=== PATIENT | male | born 1945 ===

== ENCOUNTER 2016-09-30 08:46 | Day surgery (SDC) | payer SELFPAY ==
[2016-01-22 15:00] VITALS: BMI 25.4
[2016-09-30] MEDS ORDERED: Lactated Ringer's 500 ML IV ONE (09:24)
[2016-09-30] MEDS ORDERED: Propofol 10 mg/ml Inj (20 ML) ONE (12:10)
[2016-10-01 16:00] VITALS: BP 120/56; PULSE 53; RESP 20; TEMP 97; O2SAT 99
== END 2016-09-30 13:10 | disposition home or self-care (01) ==
LOC: H.ENDO 08:46
PROVIDERS: ATTEND Internal Medicine Gastroenterology
DX: K57.90 Diverticulosis of intestine, part unspecified, without perforation or abscess without bleeding (principal); K64.8 Other hemorrhoids

== ENCOUNTER 2017-02-25 08:48 | Observation (INO) | payer OTHER, SELFPAY ==
[2017-02-25 08:48] VITALS: BMI 25.4
[2017-02-25] MEDS ORDERED: Nitroglycerin 2% 15 INCH/30 GM TUBE TOP STA (09:11)
[2017-02-25] MEDS ORDERED: Nitroglycerin 2% Ointment Foilpak UD TOP ONE (09:17)
--- NOTE | 2017-02-25 09:24 | ED PDOC ---
HPI: Chest Pain Time Seen by Provider: 02/25/17 09:10 Chief Complaint (Nursing): Chest Pain Chief Complaint (Provider): chest pain History Per: Patient History/Exam Limitations: no limitations Onset/Duration Of Symptoms: Days (x 1) Additional Complaint(s): Kemar Jarquin is a 71 year old male, who denies any previous medical history , who presents to the eD with complaints of left sided chest pain associated with palpitations which began last night. Patient denies any radiation of the pain, shortness of breath, nausea, vomiting or diaphoresis. PMD: none provided Past Medical History Reviewed: Historical Data, Nursing Documentation, Vital Signs Vital Signs: Last Vital Signs Temp 97.8 F 02/25/17 09:08 Pulse 99 H 02/25/17 09:08 Resp 20 02/25/17 09:08 BP 128/67 02/25/17 09:08 Pulse Ox 99 02/25/17 09:28 - Medical History PMH: Gastritis - Family History Family History: States: Unknown Family Hx - Home Medications Home Medications: Ambulatory Orders Medication Instructions Recorded No Known Home Med 09/30/16 - Allergies Allergies/Adverse Reactions: Allergies Allergy/AdvReac Type Severity Reaction Status Date / Time No Known Allergies Allergy Verified 02/25/17 09:08 Review of Systems ROS Statement: Except As Marked, All Systems Reviewed And Found Negative Cardiovascular: Positive for: Chest Pain, Palpitations Respiratory: Negative for: Shortness of Breath Gastrointestinal: Negative for: Nausea, Vomiting Physical Exam - Reviewed Nursing Documentation Reviewed: Yes Vital Signs Reviewed: Yes - Physical Exam Appears: Positive for: Well, Non-toxic, No Acute Distress Head Exam: Positive for: ATRAUMATIC, NORMAL INSPECTION, NORMOCEPHALIC Skin: Positive for: Normal Color, Warm, Dry Eye Exam: Positive for: EOMI, Normal appearance, PERRL ENT: Positive for: Normal ENT Inspection Neck: Positive for: Normal, Painless ROM Cardiovascular/Chest: Positive for: Regular Rate, Rhythm (with periods of irregularity ) Respiratory: Positive for: CNT, Normal Breath Sounds Gastrointestinal/Abdominal: Positive for: Normal Exam, Bowel Sounds, Soft. Negative for: Tenderness Back: Positive for: Normal Inspection Extremity: Positive for: Normal ROM Neurologic/Psych: Positive for: Alert, Oriented. Negative for: Motor/Sensory Deficits - Laboratory Results Result Diagrams: 02/25/17 09:15 - ECG O2 Sat by Pulse Oximetry: 99 (RA) Pulse Ox Interpretation: Normal Medical Decision Making Medical Decision Making: Initial Plan: * EKG * Labs * Troponin I * CXR * aspirin 350 mg PO * nitroglycerin 0.4 mg * ED observation * reevaluation Scribe Attestation: Documented by Doreen Rosas, acting as a scribe for Rodney Marques MD. Provider Scribe Attestation: All medical record entries made by the Scribe were at my direction and personally dictated by me. I have reviewed the chart and agree that the record accurately reflects my personal performance of the history, physical exam, medical decision making, and the department course for this patient. I have also personally directed, reviewed, and agree with the discharge instructions and disposition. ED OBSERVATION Date of observation admission: 02/25/17 Time of observation admission: 09:11 - Observation admission statement Patient is being placed in observation because:: evaluation of chest pain and work up - Goals of Observation Goals of observation are:: obtain work up results and alleviation of symptoms Disposition - Clinical Impression Clinical Impression: Chest pain - Patient ED Disposition Is Patient to be Admitted: Yes - Disposition Disposition Time: 09:31 Condition: FAIR Forms: [employer] (Lithuanian) - Pt Status Changed To: Hospital Disposition Of: Observation - POA Present On Arrival: None
[2017-02-25 09:26] LABS: BASO % 0.4 % (0.0-2.0); EOS # 0.1 K/uL (0.0-0.7); EOS % 2.2 % (0.0-4.0); HEMATOCRIT 40.4 % (35.0-51.0); LYMPH # 1.7 K/uL (1.0-4.3); LYMPH % 31.9 % (20.0-40.0); MEAN CELL VOLUME 91.2 fl (80.0-94.0); MEAN CORPUSCULAR HEMOGLOBIN 30.8 pg (27.0-31.0); MEAN CORPUSCULAR HGB CONC 33.8 g/dL (33.0-37.0); MEAN PLATELET VOLUME 9.7 fl (7.2-11.7); MONO # 0.4 K/uL (0.0-0.8); MONO % 8.3 % (0.0-10.0); NEUT % 57.2 % (50.0-75.0); NRBC % 0.1 % (0.0-0.0); RED CELL DISTRIBUTION WIDTH 13.4 % (11.5-14.5); WHITE BLOOD COUNT 5.3 K/uL (4.8-10.8)
[2017-02-25 10:12] LABS: BLOOD UREA NITROGEN 20 mg/dl (9-20); GLUCOSE,RANDOM 92 mg/dL (75-110)
[2017-02-25 10:13] LABS: ALB/GLOB RATIO 1.2 (1.0-2.1); CALCIUM 9.1 mg/dL (8.4-10.2); CARBON DIOXIDE 28 mmol/L (22-30); CHLORIDE 103 mmol/L (98-107); GFR AFRICAN-AMERICAN > 60; POTASSIUM 4.5 MMOL/L (3.6-5.0); SODIUM 138 mmol/l (132-148); TOTAL PROTEIN 7.5 G/DL (6.3-8.2)
[2017-02-25 10:14] LABS: ALKALINE PHOSPHATASE 57 U/L (38-126); ALT/SGPT 43 U/L (21-72); AST/SGOT 42 U/L (17-59); BILIRUBIN,TOTAL 0.4 mg/dl (0.2-1.3)
--- NOTE | 2017-02-25 11:48 | CP.PCM.HP ---
<Meera Eubanks - Last Filed: 02/25/17 17:06> History of Present Illness - History of Present Illness History of Present Illness: 71 yo male with PMH of Gastritis who cames c/o left side chest pain last night , gradual, no radiated, unable to characterize " only pain", he was lying on bed and pain disappear when he sat up during less than 1 min, no aggravating factors, associated palpitations. He reports palpitations 3-4 days ago w/o chest pain in that occasion. No recent fever, nausea or vomiting. Denies sob, diaphoresis, dizziness, no back pain, no arm pain or weakness, numbness, tingling. No history of recent injury or trauma. PMD: Dr Marion PMH: Gastritis. PSH: Prostectomy(20 years ago). Pterygium FH: Mother from uterine cancer. Father healthy () Meds: multivitamins Allergies: NKDA. SH: denies tobacco,alcohol and drugs. Lives with 2 nephews in a 3 floor house, he is using the 3rd floor. ED course. VS: temp-97.8F pulse-99 rr-20 BP-128/67 O2 sat-99 room air EKG: normal sinus rhythm, unifocal PVCs. cbc wnl, cmp wnl, troponin x1 normal. CXR normal, no acute changes. ASA 350 mg po nitroglycerin patch 0.4mg Present on Admission - Present on Admission Any Indicators Present on Admission: No History of DVT/PE: No History of Uncontrolled Diabetes: No Urinary Catheter: No Decubitus Ulcer Present: No Review of Systems - Constitutional Constitutional: As Per HPI. absent: Anorexia, Chills, Fatigue, Fever - EENT Eyes: As Per HPI. absent: Blurred Vision, Change in Vision Nose/Mouth/Throat: As Per HPI. absent: Nasal Congestion, Sinus Pain, Mouth Pain - Cardiovascular Cardiovascular: As Per HPI. absent: Chest Pain, Diaphoresis, Pain Radiating to Arm/Neck/Jaw - Respiratory Respiratory: As Per HPI. absent: Cough, Dyspnea, Wheezing - Gastrointestinal Gastrointestinal: As Per HPI. absent: Abdominal Pain, Change in Bowel Habits, Dysphagia, Heartburn - Genitourinary Genitourinary: As Per HPI. absent: Change in Urinary Stream, Dysuria - Musculoskeletal Musculoskeletal: As Per HPI. absent: Abnormal Gait, Back Pain, Joint Swelling, Muscle Weakness - Integumentary Integumentary: As Per HPI - Neurological Neurological: As Per HPI. absent: Abnormal Hearing, Abnormal Speech, Dizziness , Numbness, Headaches, Syncope - Psychiatric Psychiatric: As Per HPI - Endocrine Endocrine: As Per HPI - Hematologic/Lymphatic Hematologic: As Per HPI Past Patient History - Infectious Disease Hx of Infectious Diseases: None - Past Medical History & Family History Past Medical History?: No - Past Social History Smoking Status: Never Smoked - CARDIAC Hx Cardiac Disorders: No Hx Angina: No Hx Atrial Fibrillation: No Hx Circulatory Problems: No Hx Congestive Heart Failure: No Hx Heart Attack: No Hx Heart Murmur: No Hx Hypercholesterolemia: No Hx Hypertension: No Hx Peripheral Edema: No Hx Peripheral Vascular Disease: No - PULMONARY Hx Respiratory Disorders: No Hx Asthma: No Hx Bronchitis: No Hx Chronic Obstructive Pulmonary Disease (COPD): No Hx Emphysema: No Hx Lung Cancer: No Hx Pneumonia: No Hx Pulmonary Edema: No Hx Pulmonary Embolism: No Hx Respiratory Aspiration: No Hx Respiratory Tract Infection: No Hx Tuberculosis: No - MUSCULOSKELETAL/RHEUMATOLOGICAL Hx Back Pain: Yes - GASTROINTESTINAL Hx Gastritis: Yes - GENITOURINARY/GYNECOLOGICAL Hx Prostate Problems: Yes - PSYCHIATRIC Hx Emotional Abuse: No Hx Physical Abuse: No Hx Substance Use: No - SURGICAL HISTORY Hx Surgeries: Yes Other/Comment: OPEN PROSTATECTOMY - ANESTHESIA Hx Anesthesia: Yes Hx Anesthesia Reactions: No Hx Malignant Hyperthermia: No Meds Allergies/Adverse Reactions: Allergies Allergy/AdvReac Type Severity Reaction Status Date / Time No Known Allergies Allergy Verified 02/25/17 09:08 Physical Exam - Constitutional Appears: Well, Non-toxic, No Acute Distress - Head Exam Head Exam: ATRAUMATIC, NORMOCEPHALIC - Eye Exam Eye Exam: EOMI, Normal appearance, PERRL. absent: Nystagmus - Neck Exam Neck exam: Positive for: Full Rom, Normal Inspection. Negative for: Lymphadenopathy, Thyromegaly - Respiratory Exam Respiratory Exam: Clear to Auscultation Bilateral, NORMAL BREATHING PATTERN. absent: Rales, Rhonchi, Wheezes - Cardiovascular Exam Cardiovascular Exam: REGULAR RHYTHM, +S1, +S2. absent: Systolic Murmur - GI/Abdominal Exam GI & Abdominal Exam: Normal Bowel Sounds, Soft. absent: Mass, Tenderness - Extremities Exam Extremities exam: Positive for: full ROM, normal inspection. Negative for: calf tenderness, joint swelling, pedal edema - Back Exam Back exam: FULL ROM, NORMAL INSPECTION. absent: CVA tenderness (L), CVA tenderness (R), vertebral tenderness - Neurological Exam Neurological exam: Alert, CN II-XII Intact, Oriented x3, Reflexes Normal - Psychiatric Exam Psychiatric exam: Normal Mood - Skin Skin Exam: Dry, Normal Color, Warm Results - Vital Signs Recent Vital Signs: Last Vital Signs Temp 97.8 F 02/25/17 09:08 Pulse 70 02/25/17 09:10 Resp 20 02/25/17 09:08 BP 128/67 02/25/17 09:08 Pulse Ox 99 02/25/17 09:31 - Labs Result Diagrams: 02/25/17 09:15 02/25/17 09:15 Labs: Laboratory Results - last 24 hr 02/25/17 02/25/17 09:15 09:15 WBC 5.3 RBC 4.43 Hgb 13.6 Hct 40.4 MCV 91.2 MCH 30.8 MCHC 33.8 RDW 13.4 Plt Count 240 MPV 9.7 Neut % (Auto) 57.2 Lymph % (Auto) 31.9 [place] % (Auto) 8.3 Eos % (Auto) 2.2 Baso % (Auto) 0.4 Neut # 3.0 Lymph # 1.7 [place] # 0.4 Eos # 0.1 Baso # 0.0 Sodium 138 Potassium 4.5 Chloride 103 Carbon Dioxide 28 Anion Gap 12 BUN 20 Creatinine 0.8 Est GFR ( Amer) > 60 Est GFR (Non-Af Amer) > 60 Random Glucose 92 Calcium 9.1 Total Bilirubin 0.4 AST 42 ALT 43 Alkaline Phosphatase 57 Troponin I < 0.0120 Total Protein 7.5 Albumin 4.1 Globulin 3.4 Albumin/Globulin Ratio 1.2 Assessment & Plan - Assessment and Plan (Free Text) Assessment: 71 yo M patient with PMH of Gastritis that is admitted for chest pain and palpitations. 1- Chest pain/ palpitations -r/o acs with serial troponin -chest pain and palpitations short duration, better when pt sit up. -EKG show diffuse ST elevation, unifocal PVCs -Admit to telemetry for continuos cardiac monitoring -Echo ordered for tomorrow r/o valvular heart disease -TSH t/o thyrotoxicosis 2-DVT prophylaxis SCDs - Date & Time Date: 02/25/17 Time: 11:00 <Itzel Ramey - Last Filed: 02/26/17 07:46> Physical Exam - Skin Additional comments: ADDENDUM ATTENDING NOTE PATIENT SEEN IN ED WITH RESIDENTS. I PERSONALLY EXAMINED PATIENT AND REVIEWED, EKG,CXR AND LABS. I AGREE WITH OBS ADMISSION FOR FURTHER EVALUATION AND TREATMENT. Results - Vital Signs Recent Vital Signs: Last Vital Signs Temp 98.4 F 02/26/17 04:41 Pulse 56 L 02/26/17 04:41 Resp 18 02/26/17 04:41 BP 109/63 02/26/17 04:41 Pulse Ox 98 02/26/17 04:41 - Labs Result Diagrams: 02/25/17 09:15 02/25/17 09:15 Labs: Laboratory Results - last 24 hr 02/25/17 02/25/17 02/25/17 09:15 09:15 16:57 WBC 5.3 RBC 4.43 Hgb 13.6 Hct 40.4 MCV 91.2 MCH 30.8 MCHC 33.8 RDW 13.4 Plt Count 240 MPV 9.7 Neut % (Auto) 57.2 Lymph % (Auto) 31.9 [place] % (Auto) 8.3 Eos % (Auto) 2.2 Baso % (Auto) 0.4 Neut # 3.0 Lymph # 1.7 [place] # 0.4 Eos # 0.1 Baso # 0.0 Sodium 138 Potassium 4.5 Chloride 103 Carbon Dioxide 28 Anion Gap 12 BUN 20 Creatinine 0.8 Est GFR ( Amer) > 60 Est GFR (Non-Af Amer) > 60 Random Glucose 92 Calcium 9.1 Total Bilirubin 0.4 AST 42 ALT 43 Alkaline Phosphatase 57 Troponin I < 0.0120 < 0.0120 Total Protein 7.5 Albumin 4.1 Globulin 3.4 Albumin/Globulin Ratio 1.2 TSH 3rd Generation 02/26/17 02/26/17 00:28 05:00 WBC RBC Hgb Hct MCV MCH MCHC RDW Plt Count MPV Neut % (Auto) Lymph % (Auto) [place] % (Auto) Eos % (Auto) Baso % (Auto) Neut # Lymph # [place] # Eos # Baso # Sodium Potassium Chloride Carbon Dioxide Anion Gap BUN Creatinine Est GFR ( Amer) Est GFR (Non-Af Amer) Random Glucose Calcium Total Bilirubin AST ALT Alkaline Phosphatase Troponin I < 0.0120 Total Protein Albumin Globulin Albumin/Globulin Ratio TSH 3rd Generation 1.75
--- NOTE | 2017-02-25 15:39 | RAD ---
HISTORY: cough COMPARISON: Comparison chest 03/18/2015. FINDINGS: LUNGS: No active pulmonary disease. PLEURA: No significant pleural effusion identified, no pneumothorax apparent. CARDIOVASCULAR: Other on left Heart appears borderline/mildly enlarged OSSEOUS STRUCTURES: No significant abnormalities. VISUALIZED UPPER ABDOMEN: Normal. OTHER FINDINGS: None. IMPRESSION: No active disease.
--- NOTE | 2017-02-25 17:02 | CARD ---
APPROVED REPORT EXAM: Two-dimensional and M-mode echocardiogram with Doppler and color Doppler. Other Information Quality : GoodRhythm : PVC's INDICATION Chest Pain 2D DIMENSIONS IVSd1.08 (0.7-1.1cm)LVDd4.45 (3.9-5.9cm) LVOT Diameter2.35 (1.8-2.4cm)PWd0.79 (0.7-1.1cm) IVSs1.06 (0.8-1.2cm)LVDs3.38 (2.5-4.0cm) FS (%) 24.1 %PWs1.29 (0.8-1.2cm) M-Mode DIMENSIONS Left Atrium (MM)4.44 (2.5-4.0cm)IVSd0.88 (0.7-1.1cm) Aortic Root3.62 (2.2-3.7cm)LVDd5.41 (4.0-5.6cm) Aortic Cusp Exc.2.21 (1.5-2.0cm)PWd0.97 (0.7-1.1cm) IVSs1.29 cmFS (%) 36 % LVDs3.47 (2.0-3.8cm)PWs1.06 cm Mitral Valve MV E Nuhlpqlh89.8cm/sMV DECEL [id number] A Tnouchil85.1cm/s MV GJO77bdM/A ratio1.2MVA (PHT)2.93cm2 TDI Lateral E' Peak V10.92cm/sMedial E' Peak V8.64cm/sE/Lateral E'6.9 E/Medial E'8.8 Pulmonary Valve PV Peak Xbrnbhar276.5cm/s Tricuspid Valve TR Peak Jmyckngy095xt/sRAP BVHYWSER18gtAvLG Peak Gr.24mmHg UNXH79tuWa LEFT VENTRICLE The left ventricle is normal in size. There is normal left ventricular wall thickness. The left ventricular function is normal. The left ventricular ejection fraction is - 65%. There is normal LV segmental wall motion. The left ventricular diastolic function is normal. No left ventricle thrombus noted on this study. There is no ventricular septal defect visualized. There is no left ventricular aneurysm. There is no mass noted in the left ventricle. RIGHT VENTRICLE The right ventricle is normal size. There is normal right ventricular wall thickness. The right ventricular systolic function is normal. ATRIA The left atrium is mildly dilated. There is no thrombus suspected in the left atrium. The right atrium size is normal. The interatrial septum is intact with no evidence for an atrial septal defect. AORTIC VALVE The aortic valve is normal in structure and function. No aortic regurgitation is present. There is no aortic valvular stenosis. MITRAL VALVE The mitral valve is normal in structure and function. There is no evidence of mitral valve prolapse. There is no mitral valve stenosis. Mitral regurgitation is trace. TRICUSPID VALVE The tricuspid valve is normal in structure and function. There is mild to moderate tricuspid regurgitation. Right ventricular systolic pressure is estimated at 33 mmHg. There is no tricuspid valve prolapse or vegetation. There is no tricuspid valve stenosis. PULMONIC VALVE The pulmonic valve is not well visualized. There is no pulmonic valvular regurgitation. GREAT VESSELS The aortic root is normal in size. The IVC is normal in size and collapses >50% with inspiration. PERICARDIAL EFFUSION The pericardium appears normal. There is no pleural effusion. <Conclusion> The left ventricle is normal in size and wall thickness. The left ventricular function is normal. The left ventricular ejection fraction is - 65%. The left atrium is mildly dilated. The mitral, aortic and tricuspid valves are normal. There is trace mitral regurgitation and mild to moderate tricuspid regurgitation.
[2017-02-26 08:28] VITALS: RESP 20
[2017-02-26 12:49] VITALS: BP 114/68; PULSE 86; TEMP 98.5; O2SAT 97
--- NOTE | 2017-02-26 12:52 | CP.PCM.DIS ---
<Meera Eubanks - Last Filed: 02/26/17 15:21> Provider - Provider Date of Admission: 02/25/17 09:11 Attending physician: Bonny Valencia MD Time Spent in preparation of Discharge (in minutes): 30 Hospital Course - Lab Results Lab Results: Most Recent Lab Values WBC 5.3 K/uL (4.8-10.8) 02/25/17 09:15 RBC 4.43 Mil/uL (4.40-5.90) 02/25/17 09:15 Hgb 13.6 g/dL (12.0-18.0) 02/25/17 09:15 Hct 40.4 % (35.0-51.0) 02/25/17 09:15 MCV 91.2 fl (80.0-94.0) 02/25/17 09:15 MCH 30.8 pg (27.0-31.0) 02/25/17 09:15 MCHC 33.8 g/dL (33.0-37.0) 02/25/17 09:15 RDW 13.4 % (11.5-14.5) 02/25/17 09:15 Plt Count 240 K/uL (130-400) 02/25/17 09:15 MPV 9.7 fl (7.2-11.7) 02/25/17 09:15 Neut % (Auto) 57.2 % (50.0-75.0) 02/25/17 09:15 Lymph % (Auto) 31.9 % (20.0-40.0) 02/25/17 09:15 [place] % (Auto) 8.3 % (0.0-10.0) 02/25/17 09:15 Eos % (Auto) 2.2 % (0.0-4.0) 02/25/17 09:15 Baso % (Auto) 0.4 % (0.0-2.0) 02/25/17 09:15 Neut # 3.0 K/uL (1.8-7.0) 02/25/17 09:15 Lymph # 1.7 K/uL (1.0-4.3) 02/25/17 09:15 [place] # 0.4 K/uL (0.0-0.8) 02/25/17 09:15 Eos # 0.1 K/uL (0.0-0.7) 02/25/17 09:15 Baso # 0.0 K/uL (0.0-0.2) 02/25/17 09:15 Sodium 138 mmol/l (132-148) 02/25/17 09:15 Potassium 4.5 MMOL/L (3.6-5.0) 02/25/17 09:15 Chloride 103 mmol/L (98-107) 02/25/17 09:15 Carbon Dioxide 28 mmol/L (22-30) 02/25/17 09:15 Anion Gap 12 (10-20) 02/25/17 09:15 BUN 20 mg/dl (9-20) 02/25/17 09:15 Creatinine 0.8 mg/dL (0.8-1.5) 02/25/17 09:15 Est GFR ( Amer) > 60 02/25/17 09:15 Est GFR (Non-Af Amer) > 60 02/25/17 09:15 Random Glucose 92 mg/dL (75-110) 02/25/17 09:15 Calcium 9.1 mg/dL (8.4-10.2) 02/25/17 09:15 Total Bilirubin 0.4 mg/dl (0.2-1.3) 02/25/17 09:15 AST 42 U/L (17-59) 02/25/17 09:15 ALT 43 U/L (21-72) 02/25/17 09:15 Alkaline Phosphatase 57 U/L (38-126) 02/25/17 09:15 Troponin I < 0.0120 ng/mL (0.00-0.120) 02/26/17 00:28 Total Protein 7.5 G/DL (6.3-8.2) 02/25/17 09:15 Albumin 4.1 g/dL (3.5-5.0) 02/25/17 09:15 Globulin 3.4 gm/dL (2.2-3.9) 02/25/17 09:15 Albumin/Globulin Ratio 1.2 (1.0-2.1) 02/25/17 09:15 TSH 3rd Generation 1.75 mIU/ML (0.46-4.68) 02/26/17 05:00 - Hospital Course Hospital Course: 71 yo male with PMH of Gastritis admitted with left side chest pain and palpitations x 1 day. VS normal. EKG: normal sinus rhythm, unifocal PVCs. cbc wnl, cmp wnl, CXR normal, no acute changes. r/o ACS troponin x3 normal. r/o thyrotoxicosis TSH normal. r/o pericarditis Echo normal. ASA 350 mg po nitroglycerin patch 0.4mg Patient asymptomatic at discharge time. F/U with PMD on 03/20/17 at 1:00 pm. Discharge Exam - Head Exam Head Exam: ATRAUMATIC, NORMOCEPHALIC - Eye Exam Eye Exam: EOMI, Normal appearance, PERRL - Neck Exam Neck exam: Full Rom - Respiratory Exam Respiratory Exam: Clear to PA & Lateral, NORMAL BREATHING PATTERN. absent: Rales, Rhonchi, Wheezes - Cardiovascular Exam Cardiovascular Exam: REGULAR RHYTHM, +S1, +S2. absent: Gallop, Systolic Murmur - GI/Abdominal Exam GI & Abdominal Exam: Normal Bowel Sounds, Soft. absent: Organomegaly, Tenderness - Extremities Exam Extremities exam: full ROM - Back Exam Back exam: NORMAL INSPECTION. absent: vertebral tenderness - Neurological Exam Neurological exam: Alert, CN II-XII Intact, Normal Gait, Oriented x3, Reflexes Normal - Psychiatric Exam Psychiatric exam: Normal Mood - Skin Skin Exam: Dry, Normal Color, Warm Discharge Plan - Follow Up Plan Condition: IMPROVED Disposition: HOME/ ROUTINE Patient education suggested?: Yes Instructions: Chest Pain (DC) Additional Instructions: F/U with PMD on 03/20/2017 at 1:[address] [address] <Itzel Ramey - Last Filed: 02/27/17 08:25> Provider - Provider Date of Admission: 02/25/17 09:11 Attending physician: Bonny Valencia MD Hospital Course - Lab Results Lab Results: Most Recent Lab Values WBC 5.3 K/uL (4.8-10.8) 02/25/17 09:15 RBC 4.43 Mil/uL (4.40-5.90) 02/25/17 09:15 Hgb 13.6 g/dL (12.0-18.0) 02/25/17 09:15 Hct 40.4 % (35.0-51.0) 02/25/17 09:15 MCV 91.2 fl (80.0-94.0) 02/25/17 09:15 MCH 30.8 pg (27.0-31.0) 02/25/17 09:15 MCHC 33.8 g/dL (33.0-37.0) 02/25/17 09:15 RDW 13.4 % (11.5-14.5) 02/25/17 09:15 Plt Count 240 K/uL (130-400) 02/25/17 09:15 MPV 9.7 fl (7.2-11.7) 02/25/17 09:15 Neut % (Auto) 57.2 % (50.0-75.0) 02/25/17 09:15 Lymph % (Auto) 31.9 % (20.0-40.0) 02/25/17 09:15 [place] % (Auto) 8.3 % (0.0-10.0) 02/25/17 09:15 Eos % (Auto) 2.2 % (0.0-4.0) 02/25/17 09:15 Baso % (Auto) 0.4 % (0.0-2.0) 02/25/17 09:15 Neut # 3.0 K/uL (1.8-7.0) 02/25/17 09:15 Lymph # 1.7 K/uL (1.0-4.3) 02/25/17 09:15 [place] # 0.4 K/uL (0.0-0.8) 02/25/17 09:15 Eos # 0.1 K/uL (0.0-0.7) 02/25/17 09:15 Baso # 0.0 K/uL (0.0-0.2) 02/25/17 09:15 Sodium 138 mmol/l (132-148) 02/25/17 09:15 Potassium 4.5 MMOL/L (3.6-5.0) 02/25/17 09:15 Chloride 103 mmol/L (98-107) 02/25/17 09:15 Carbon Dioxide 28 mmol/L (22-30) 02/25/17 09:15 Anion Gap 12 (10-20) 02/25/17 09:15 BUN 20 mg/dl (9-20) 02/25/17 09:15 Creatinine 0.8 mg/dL (0.8-1.5) 02/25/17 09:15 Est GFR ( Amer) > 60 02/25/17 09:15 Est GFR (Non-Af Amer) > 60 02/25/17 09:15 Random Glucose 92 mg/dL (75-110) 02/25/17 09:15 Calcium 9.1 mg/dL (8.4-10.2) 02/25/17 09:15 Total Bilirubin 0.4 mg/dl (0.2-1.3) 02/25/17 09:15 AST 42 U/L (17-59) 02/25/17 09:15 ALT 43 U/L (21-72) 02/25/17 09:15 Alkaline Phosphatase 57 U/L (38-126) 02/25/17 09:15 Troponin I < 0.0120 ng/mL (0.00-0.120) 02/26/17 00:28 Total Protein 7.5 G/DL (6.3-8.2) 02/25/17 09:15 Albumin 4.1 g/dL (3.5-5.0) 02/25/17 09:15 Globulin 3.4 gm/dL (2.2-3.9) 02/25/17 09:15 Albumin/Globulin Ratio 1.2 (1.0-2.1) 02/25/17 09:15 TSH 3rd Generation 1.75 mIU/ML (0.46-4.68) 02/26/17 05:00 Discharge Exam - Skin Additional comments: ADDENDUM ATTENDING NOTE PATIENT SEEN BY ME AND EXAMINED. PATIENT WITHOUT PAIN SINCE ADMISSION. WORK UP NEGATIVE FOR AMI. CASE DISCUSSED WITH RESIDENT. AGREE WITH FINDINGS AND PLAN TO FOLLOW OUTPATIENT.
--- NOTE | 2017-02-27 09:56 | CARD ---
APPROVED REPORT EKG Measurement Heart [id number] VT 160P30 [id number] <Conclusion> Sinus bradycardia with occasional premature ventricular complexes Otherwise normal ECG
== END 2017-02-26 14:56 | disposition home or self-care (01) ==
LOC: H.ER 08:48 → H.ERHOLD 09:11 → H.TEL 12:04
PROVIDERS: ADMIT Family Medicine Geriatric Medicine; ATTEND Family Medicine Geriatric Medicine
DX: R07.9 Chest pain, unspecified (principal); R00.2 Palpitations; K29.70 Gastritis, unspecified, without bleeding
CPT/HCPCS: 36415; 71010; 80053; 84443; 84484; 85025; 93005; 93306; 99285; G0378

== ENCOUNTER 2017-03-16 09:19 | Emergency (ER) | payer SELFPAY ==
[2017-03-16 09:24] VITALS: BP 139/66; PULSE 57; RESP 20; TEMP 97.6; O2SAT 100
[2017-03-16 09:25] VITALS: BMI 24.7
--- NOTE | 2017-03-16 09:56 | ED PDOC ---
Lower Extremity Pain/Injury Time Seen by Provider: 03/16/17 09:28 Chief Complaint (Nursing): Lower Extremity Problem/Injury Chief Complaint (Provider): right hip pain History Per: Patient Onset/Duration Of Symptoms: Days (3) Current Symptoms Are (Timing): Still Present Severity: Moderate Additional History Per: Prior Records (chest pain admission last month) Additional Complaint(s): 70yo male states has right hip/ upper leg pain radiating to back and posterior leg since thursday. Denies falls or injury. Denies numbness, tingling or weakness. Denies urinary symptoms. Past Medical History Vital Signs: Last Vital Signs Temp 97.6 F 03/16/17 09:23 Pulse 57 L 03/16/17 09:23 Resp 20 03/16/17 09:23 BP 139/66 03/16/17 09:23 Pulse Ox 100 03/16/17 09:23 - Medical History PMH: Gastritis Denies: Asthma, Atrial Fibrillation, Bronchitis, CHF, COPD, Emphysema, HTN, Hypercholesterolemia, Peripheral Edema, Pneumonia, Pulmonary Embolism - Family History Family History: States: Unknown Family Hx - Home Medications Home Medications: Ambulatory Orders Medication Instructions Recorded Naproxen [Naprosyn] 500 mg PO BID PRN #14 tablet 03/16/17 - Allergies Allergies/Adverse Reactions: Allergies Allergy/AdvReac Type Severity Reaction Status Date / Time No Known Allergies Allergy Verified 02/25/17 09:08 Physical Exam - Reviewed Nursing Documentation Reviewed: Yes Vital Signs Reviewed: Yes - Physical Exam Appears: Positive for: Well, Non-toxic, No Acute Distress Head Exam: Positive for: ATRAUMATIC, NORMAL INSPECTION, NORMOCEPHALIC Skin: Positive for: Normal Color, Warm, DRY Eye Exam: Positive for: EOMI, Normal appearance, PERRL ENT: Positive for: Normal ENT Inspection Neck: Positive for: Normal, Painless ROM Cardiovascular/Chest: Positive for: Regular Rate, Rhythm Respiratory: Positive for: CNT, Normal Breath Sounds Gastrointestinal/Abdominal: Positive for: Normal Exam, Bowel Sounds, Soft Back: Positive for: Normal Inspection Extremity: Positive for: Other (+ mild tenderness R hip w pain w ROM, no deformity, is able to actively abduct and flex hip. Ambulated to room.). Negative for: Pedal Edema, Deformity Neurologic/Psych: Positive for: Alert, Oriented. Negative for: Motor/Sensory Deficits - ECG O2 Sat by Pulse Oximetry: 100 Pulse Ox Interpretation: Normal - Radiology X-Ray: Read By Radiologist X-Ray Interpretation: Other (neg fracture) Medical Decision Making Medical Decision Making: to obtain XRays and initiate analgesia. Improved in ED, DC to followup w PMD/. Disposition - Clinical Impression Clinical Impression: Hip pain - Patient ED Disposition Is Patient to be Admitted: No Counseled Patient/Family Regarding: Studies Performed, Diagnosis - Disposition Referrals: [facility] [Outside] Disposition: Routine/Home Disposition Time: 11:01 Condition: IMPROVED Additional Instructions: See clinic for referral to orthopedist for further treatment or testing. Take medication as directed for pain. Prescriptions: Naproxen [Naprosyn] 500 mg PO BID PRN #14 tablet PRN Reason: Pain, Moderate (4-7) Instructions: Arthralgia (ED), Hip Pain (ED) Forms: [facility] (Rwandan) Print Language: SAO TOMEAN
--- NOTE | 2017-03-16 10:49 | RAD ---
HISTORY: R hip/ back pain COMPARISON: No prior FINDINGS: BONES: Normal. No fracture. JOINTS: Normal. No osteoarthritis. SOFT TISSUE: Normal. OTHER FINDINGS: None . IMPRESSION: Normal Bone Xray.
--- NOTE | 2017-03-16 10:54 | RAD ---
PROCEDURE: Radiographs of the Lumbar Spine. HISTORY: R hip/ back pain COMPARISON: No prior. FINDINGS: BONES: Normal alignment. No listhesis. No fracture. DISC SPACES: Unremarkable. OTHER FINDINGS: Multilevel mild degenerative spondylosis.. IMPRESSION: No acute fracture.
== END 2017-03-16 11:28 | disposition home or self-care (01) ==
LOC: H.ER 09:19
DX: M25.551 Pain in right hip (principal)
CPT/HCPCS: 72114; 73502; 96372; 99282; J1885

== ENCOUNTER 2017-04-23 10:37 | Inpatient (IN) | payer MEDICAID, SELFPAY ==
[2017-04-23 10:37] VITALS: BMI 24.7
[2017-04-23 11:14] LABS: BASO % 0.5 % (0.0-2.0); EOS # 0.1 K/uL (0.0-0.7); EOS % 2.2 % (0.0-4.0); HEMATOCRIT 41.7 % (35.0-51.0); LYMPH # 1.7 K/uL (1.0-4.3); LYMPH % 25.8 % (20.0-40.0); MEAN CELL VOLUME 91.7 fl (80.0-94.0); MEAN CORPUSCULAR HEMOGLOBIN 31.4 pg (27.0-31.0); MEAN CORPUSCULAR HGB CONC 34.2 g/dL (33.0-37.0); MEAN PLATELET VOLUME 10.2 fl (7.2-11.7); MONO # 0.5 K/uL (0.0-0.8); MONO % 8.1 % (0.0-10.0); NEUT # 4.3 K/uL (1.8-7.0); NEUT % 63.4 % (50.0-75.0); WHITE BLOOD COUNT 6.7 K/uL (4.8-10.8)
[2017-04-23 11:24] LABS: ALB/GLOB RATIO 1.3 (1.0-2.1); ALKALINE PHOSPHATASE 61 U/L (38-126); ALT/SGPT 45 U/L (21-72); AST/SGOT 36 U/L (17-59); BILIRUBIN,TOTAL 0.5 mg/dl (0.2-1.3); BLOOD UREA NITROGEN 16 mg/dl (9-20); CARBON DIOXIDE 27 mmol/L (22-30); CHLORIDE 102 mmol/L (98-107); GFR AFRICAN-AMERICAN > 60; GLUCOSE,RANDOM 129 mg/dL (75-110); LIPASE 150 U/L (23-300); POTASSIUM 4.5 MMOL/L (3.6-5.0); SODIUM 139 mmol/l (132-148); TOTAL PROTEIN 7.9 G/DL (6.3-8.2)
--- NOTE | 2017-04-23 12:56 | US ---
HISTORY: upper abd pain COMPARISON: None. TECHNIQUE: Sonographic evaluation of the abdomen. FINDINGS: LIVER: Measures 13.1 cm. Normal echogenicity of the liver parenchyma. No mass. No intrahepatic bile duct dilatation. GALLBLADDER: Unremarkable. No gallstones. COMMON BILE DUCT: Measures 4 mm. No stones. No dilatation. PANCREAS: Unremarkable as visualized. No mass. No ductal dilatation. RIGHT KIDNEY: Measures 10.8cm. Normal echogenicity. No calculus, mass, or hydronephrosis. LEFT KIDNEY: Measures 11.2cm. Normal echogenicity. No calculus, mass, or hydronephrosis. SPLEEN: Normal in size and contour. No mass. AORTA: No aneurysmal dilatation. IVC: Unremarkable. OTHER FINDINGS: None. IMPRESSION: Unremarkable abdominal sonogram.
[2017-04-23] MEDS ORDERED: Iohexol 240 (50 ml) PO ONE (13:09)
[2017-04-23] MEDS ORDERED: Sodium Chloride 0.9% 1,000 ML IV STA (14:10)
[2017-04-23] MEDS ORDERED: Iohexol 240 (50 ml) ONE (14:12)
[2017-04-23 15:02] LABS: RBC URINE 3 /hpf (0-3); URINE BILIRUBIN NEGATIVE (NEGATIVE); URINE BLOOD NEGATIVE (NEGATIVE); URINE COLOR YELLOW (YELLOW); URINE GLUCOSE (UA) NEG (Normal); URINE KETONE NEGATIVE (NEGATIVE); URINE LEUKOCYTE ESTERASE NEG Leu/uL (Negative); URINE PROTEIN NEGATIVE (NEGATIVE); URINE UROBILINOGEN 0.2-1.0 mg/dL (0.2-1.0); WBC URINE < 1 /hpf (0-5)
[2017-04-23] MEDS ORDERED: Iohexol 300 100 ML IJ ONE (15:51)
[2017-04-23] MEDS ORDERED: Sodium Chloride 0.9% 50 ML IV ONE (15:51)
--- NOTE | 2017-04-23 16:50 | CT ---
PROCEDURE: CT Abdomen and Pelvis with contrast HISTORY: upper abd pain COMPARISON: 06/08/2015 TECHNIQUE: Contrast dose: 90 mL Omnipaque 300 Radiation dose: Total exam DLP = 367.86 mGy-cm. This CT exam was performed using one or more of the following dose reduction techniques: Automated exposure control, adjustment of the mA and/or kV according to patient size, and/or use of iterative reconstruction technique. FINDINGS: LOWER THORAX: Linear scar/atelectasis in both lower lobes. LIVER: Unremarkable. No gross lesion or ductal dilatation. GALLBLADDER AND BILE DUCTS: Unremarkable. PANCREAS: Unremarkable. No gross lesion or ductal dilatation. SPLEEN: Unremarkable. ADRENALS: Unremarkable. No mass. KIDNEYS AND URETERS: Unremarkable. No hydronephrosis. No solid mass. VASCULATURE: Unremarkable. No aortic aneurysm. BOWEL: No bowel obstruction. Mild mural thickening of the transverse colon. There is pericolonic inflammatory change about the transverse colon. Findings suggestive of colitis, either inflammatory or infectious. No other abnormal bowel loops are appreciated. APPENDIX: Normal appendix. PERITONEUM: Unremarkable. No free fluid. No free air. LYMPH NODES: Unremarkable. No enlarged lymph nodes. BLADDER: Poorly distended. No gross abnormality. REPRODUCTIVE: Normal prostate. BONES: No acute fracture. OTHER FINDINGS: None. IMPRESSION: Findings suggestive of acute colitis involving the transverse colon. Infectious versus inflammatory etiology. No bowel obstruction. No other significant abnormality identified.
--- NOTE | 2017-04-23 16:53 | ED PDOC ---
HPI: Abdomen Time Seen by Provider: 04/23/17 10:48 Chief Complaint (Nursing): Abdominal Pain Chief Complaint (Provider): abdominal pain History Per: Patient, Publications Manager History/Exam Limitations: no limitations Current Symptoms Are (Timing): Still Present Location Of Pain/Discomfort: RUQ, Epigastric Quality Of Discomfort: Sharp, Cramping, Burning Associated Symptoms: Nausea, Loss Of Appetite Exacerbating Factors: None Alleviating Factors: None Last Bowel Movement: Today Additional Complaint(s): 70yo male c/o upper abdominal pain, nausea ongoing intermittently for several months. Denies syncope, chest pain, SOB, melena or fever. Past Medical History Reviewed: Historical Data, Nursing Documentation Vital Signs: Last Vital Signs Temp 98.1 F 04/23/17 10:40 Pulse 77 04/23/17 10:52 Resp 18 04/23/17 10:40 BP 141/64 04/23/17 10:52 Pulse Ox 100 04/23/17 16:55 - Medical History PMH: Gastritis Denies: Asthma, Atrial Fibrillation, Bronchitis, CHF, COPD, Emphysema, HTN, Hypercholesterolemia, Peripheral Edema, Pneumonia, Pulmonary Embolism - Surgical History Surgical History: No Surg Hx - Family History Family History: States: Unknown Family Hx - Social History Current smoker - smoking cessation education provided: No Alcohol: None - Home Medications Home Medications: Ambulatory Orders Medication Instructions Recorded Naproxen [Naprosyn] 500 mg PO BID PRN #14 tablet 03/16/17 - Allergies Allergies/Adverse Reactions: Allergies Allergy/AdvReac Type Severity Reaction Status Date / Time No Known Allergies Allergy Verified 04/23/17 10:48 Review of Systems ROS Statement: Except As Marked, All Systems Reviewed And Found Negative Constitutional: Negative for: Fever, Chills Respiratory: Negative for: Cough, Shortness of Breath Gastrointestinal: Positive for: Nausea, Vomiting, Abdominal Pain Genitourinary Male: Negative for: Dysuria, Frequency Musculoskeletal: Negative for: Neck Pain, Back Pain Skin: Negative for: Rash Neurological: Negative for: Weakness, Numbness, Dizziness Physical Exam - Reviewed Nursing Documentation Reviewed: Yes Vital Signs Reviewed: Yes - Physical Exam Appears: Positive for: Well, Non-toxic, No Acute Distress Head Exam: Positive for: ATRAUMATIC, NORMAL INSPECTION, NORMOCEPHALIC Skin: Positive for: Normal Color, Warm, DRY Eye Exam: Positive for: EOMI, Normal appearance, PERRL ENT: Positive for: Normal ENT Inspection Neck: Positive for: Normal, Painless ROM Cardiovascular/Chest: Positive for: Regular Rate, Rhythm Respiratory: Positive for: CNT, Normal Breath Sounds Gastrointestinal/Abdominal: Positive for: Bowel Sounds, Soft, Tenderness ( mild upper abd tenderness). Negative for: Guarding, Rebound Back: Positive for: Normal Inspection Extremity: Positive for: Normal ROM Neurologic/Psych: Positive for: Alert, Oriented - Laboratory Results Result Diagrams: 04/23/17 11:05 04/23/17 11:05 - ECG ECG: Positive for: Interpreted By Me ECG Rhythm: Positive for: Sinus Rhythm, Nonspecific Changes Interpretation Of Abn EKG: bigeminy O2 Sat by Pulse Oximetry: 100 Pulse Ox Interpretation: Normal Medical Decision Making Medical Decision Making: workup for upper abd pain initiated labs reviewed US abd obtained, unremarkable Therefore CT ordered which reveals colitis transverse colon 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 This is because of the severity of symptoms shown, intensity of services needed, and/or the medical risk in this patient being treated as an outpatient. - POA Present On Arrival: None
[2017-04-23] MEDS ORDERED: Ciprofloxacin 400mg/200ml D5W 400 MG/200 ML BAG IVPB STA (16:59)
--- NOTE | 2017-04-23 17:38 | CP.PCM.HP ---
History of Present Illness - History of Present Illness History of Present Illness: 71 YO male with PMH of gastritis and H. pylori treatment (2014) presents to [facility] ED for abdominal pain. Per pt, this is a pain that he has had for years. Pain is located in the [place]-umbilical area (transverse across) with no radiation. He describes it as pressure type pain, that is persistent but worse when palpated. Pt rates the pain as a mild at rest and moderate when palpated. No associated symptoms, but pt states that the pain gets better after eating. Pt additionally endorses 10lb weight loss in the past 4 months. Denies chest pain, dyspnea, palpitation, n/v/d/c, no blood w/ stool, no changes in stool, chills, and fever. Last BM this AM. of note, pt was seen in clinic with similar concerns on 03/20/2017. He had extensive work-up with Dr. Younger regarding abdominal pain and weight loss and work up was neg. Last colonoscopy was 09/2016. In the ED: CT abdomne/pelvis done showing transverse colitis, unremarkable abdominal u/s, EKG appreciated with sinus rhythm and bigeminy cbc, cmp and ua wnl, vs stable and pt afebrile pt given IV abx, asa, pepsid and zofran. PMD: [facility] PMH: Gastritis, h. pylori infection (s/p treatment) Surghx: prostate removal 2001 FH: father prostate cancer, mother uterine cancer SocHx: lives at home with nephew and his , denies ETOH, smoking and illicit drug use Allergies: NKDA Meds: not on any home meds Present on Admission - Present on Admission Any Indicators Present on Admission: Yes Review of Systems - Constitutional Constitutional: absent: Chills, Fever, Headache - EENT Eyes: absent: Discharge, Pain - Cardiovascular Cardiovascular: absent: Chest Pain, Chest Pain at Rest, Lightheadedness, Palpitations - Respiratory Respiratory: absent: Cough, Dyspnea - Gastrointestinal Gastrointestinal: Abdominal Pain. absent: Bloating, Change in Bowel Habits, Change in Stool Character, Diarrhea, Loose Stools, Vomiting - Genitourinary Genitourinary: absent: Difficulty Urinating, Dysuria - Musculoskeletal Musculoskeletal: absent: Back Pain, Muscle Weakness, Numbness, Stiffness - Neurological Neurological: absent: Numbness, Headaches, Weakness - Psychiatric Psychiatric: absent: Anxiety, Confusion, Depression Past Patient History - Infectious Disease Hx of Infectious Diseases: None - Tetanus Immunizations Tetanus Immunization: Unknown - Past Medical History & Family History Past Medical History?: No - Past Social History Smoking Status: Never Smoked Alcohol: None Drugs: Denies Home Situation {Lives}: With Family (nephew and nephews ) - CARDIAC Hx Atrial Fibrillation: No Hx Congestive Heart Failure: No Hx Hypercholesterolemia: No Hx Hypertension: No Hx Peripheral Edema: No - PULMONARY Hx Asthma: No Hx Bronchitis: No Hx Chronic Obstructive Pulmonary Disease (COPD): No Hx Emphysema: No Hx Pneumonia: No Hx Pulmonary Embolism: No - NEUROLOGICAL Hx Neurological Disorder: No - ENDOCRINE/METABOLIC Hx Endocrine Disorders: No - HEMATOLOGICAL/ONCOLOGICAL Hx Blood Disorders: No Hx Blood Transfusions: No - MUSCULOSKELETAL/RHEUMATOLOGICAL Hx Back Pain: Yes - GASTROINTESTINAL Hx Gastritis: Yes - GENITOURINARY/GYNECOLOGICAL Hx Prostate Problems: Yes - PSYCHIATRIC Hx Emotional Abuse: No Hx Physical Abuse: No Hx Substance Use: No - SURGICAL HISTORY Hx Surgeries: Yes Other/Comment: OPEN PROSTATECTOMY - ANESTHESIA Hx Anesthesia: Yes Hx Anesthesia Reactions: No Hx Malignant Hyperthermia: No Meds Allergies/Adverse Reactions: Allergies Allergy/AdvReac Type Severity Reaction Status Date / Time No Known Allergies Allergy Verified 04/23/17 10:48 Physical Exam - Head Exam Head Exam: ATRAUMATIC, NORMAL INSPECTION, NORMOCEPHALIC - Eye Exam Eye Exam: EOMI, Normal appearance, PERRL - ENT Exam ENT Exam: Mucous Membranes Moist - Neck Exam Neck exam: Positive for: Full Rom, Normal Inspection - Respiratory Exam Respiratory Exam: Clear to Auscultation Bilateral, NORMAL BREATHING PATTERN - Cardiovascular Exam Cardiovascular Exam: REGULAR RHYTHM, +S1, +S2 - GI/Abdominal Exam GI & Abdominal Exam: Normal Bowel Sounds, Soft, Tenderness (tenderness to palpation, Transverse across the umbilical area. ). absent: Distended, Guarding , Mass - Extremities Exam Extremities exam: Positive for: full ROM, normal inspection. Negative for: calf tenderness, pedal edema - Back Exam Back exam: NORMAL INSPECTION. absent: CVA tenderness (L), CVA tenderness (R) - Neurological Exam Neurological exam: Alert, CN II-XII Intact, Normal Gait, Oriented x3, Reflexes Normal - Psychiatric Exam Psychiatric exam: Normal Affect, Normal Mood - Skin Skin Exam: Dry, Intact, Normal Color, Warm Results - Vital Signs Recent Vital Signs: Last Vital Signs Temp 98.1 F 04/23/17 10:40 Pulse 77 04/23/17 10:52 Resp 18 04/23/17 10:40 BP 141/64 04/23/17 10:52 Pulse Ox 100 04/23/17 17:02 - Labs Result Diagrams: 04/23/17 11:05 04/23/17 11:05 Labs: Laboratory Results - last 24 hr 04/23/17 04/23/17 04/23/17 11:05 11:05 14:20 WBC 6.7 RBC 4.55 Hgb 14.3 Hct 41.7 MCV 91.7 MCH 31.4 H MCHC 34.2 RDW 14.0 Plt Count 207 MPV 10.2 Neut % (Auto) 63.4 Lymph % (Auto) 25.8 [place] % (Auto) 8.1 Eos % (Auto) 2.2 Baso % (Auto) 0.5 Neut # 4.3 Lymph # 1.7 [place] # 0.5 Eos # 0.1 Baso # 0.0 Sodium 139 Potassium 4.5 Chloride 102 Carbon Dioxide 27 Anion Gap 14 BUN 16 Creatinine 0.9 Est GFR ( Amer) > 60 Est GFR (Non-Af Amer) > 60 Random Glucose 129 H Calcium 9.0 Total Bilirubin 0.5 AST 36 ALT 45 Alkaline Phosphatase 61 Troponin I < 0.0120 Total Protein 7.9 Albumin 4.4 Globulin 3.4 Albumin/Globulin Ratio 1.3 Lipase 150 Urine Color Yellow Urine Clarity Clear Urine pH 6.0 Ur Specific [place] 1.018 Urine Protein Negative Urine Glucose (UA) Neg Urine Ketones Negative Urine Blood Negative Urine Nitrate Negative Urine Bilirubin Negative Urine Urobilinogen 0.2-1.0 Ur Leukocyte Esterase Neg Urine RBC (Auto) 3 Urine Microscopic WBC < 1 - EKG Data EKG Interpreted by: Myself EKG shows normal: Sinus rhythm - EKG Data EKG comments: Sinus rhythm with a rate of 73 and bigeminy. Assessment & Plan - Assessment and Plan (Free Text) Assessment: 71 YO male with PMH of gastritis and H. 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 1. Abdominal pain -likely secondary to transverse colitis -CT appreciated, findings consistent with acute colitis involving the transverse colon. -Pt given cipro and metro in the ED -will continue pt on cipro and metro -NPO -IV fluids -tylenol and toradol for pain 2. 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 DVT prop -lovonox 40mg
[2017-04-23] MEDS ORDERED: Ciprofloxacin 400mg/200ml D5W 400 MG/200 ML BAG IVPB SCH (21:00)
[2017-04-23] MEDS ORDERED: Influenza Vaccine 18yr & older 0.5 ML/45 MCG SYR IM ONE (21:43)
[2017-04-23] MEDS: Lactated Ringer's 1,000 ML IV SCH (22:44)
[2017-04-24] MEDS: Ciprofloxacin 400mg/200ml D5W 400 MG/200 ML BAG IVPB SCH ×2 (04:16→17:10)
[2017-04-24 05:20] LABS: HEMATOCRIT 39.1 % (35.0-51.0); MEAN CELL VOLUME 91.8 fl (80.0-94.0); MEAN CORPUSCULAR HGB CONC 33.7 g/dL (33.0-37.0); RED CELL DISTRIBUTION WIDTH 13.9 % (11.5-14.5); WHITE BLOOD COUNT 5.3 K/uL (4.8-10.8)
[2017-04-24 05:47] LABS: BLOOD UREA NITROGEN 13 mg/dl (9-20); CALCIUM 8.4 mg/dL (8.4-10.2); CARBON DIOXIDE 26 mmol/L (22-30); CHLORIDE 105 mmol/L (98-107); GFR AFRICAN-AMERICAN > 60; GLUCOSE,RANDOM 108 mg/dL (75-110); PHOSPHOROUS 3.8 mg/dl (2.5-4.5); POTASSIUM 3.9 MMOL/L (3.6-5.0); SODIUM 139 mmol/l (132-148)
[2017-04-24] MEDS ORDERED: Influenza Vaccine 18yr & older 0.5 ML/45 MCG SYR IM ONE (06:00)
[2017-04-24 08:10] LABS: MAGNESIUM 1.9 MG/DL (1.6-2.3)
--- NOTE | 2017-04-24 08:29 | CARD ---
APPROVED REPORT EKG Measurement Heart [id number] <Conclusion> Sinus rhythm with frequent premature ventricular complexes Otherwise normal ECG
--- NOTE | 2017-04-24 09:00 | CP.PCM.PN ---
Subjective - Date & Time of Evaluation Date of Evaluation: 04/24/17 Time of Evaluation: 08:58 - Subjective Subjective: HD 2 71 YO male with PMH of gastritis admitted for colitis and bigeminy. S: no acute overnight events. Pt seen and examined this AM. He states that he feels a little better then yesterday but continues to endorse abdominal pain. 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 Denies chest pain, dyspnea, palpitations , n/v/d/c. of note, pt speaks Fijian- [employer] [id number] Objective - Vital Signs/Intake and Output Vital Signs (last 24 hours): Temp Pulse Resp BP Pulse Ox 98.5 F 53 L 20 117/60 96 04/24/17 08:17 04/24/17 08:17 04/24/17 08:17 04/24/17 08:17 04/24/17 08:17 - Medications Medications: Current Medications Acetaminophen (Tylenol 325mg Tab) 650 mg PO Q6 PRN PRN Reason: Pain, Mild (1-3) Aspirin (Aspirin Chewable) 81 mg PO DAILY [facility] Enoxaparin Sodium (Lovenox) 40 mg SC DAILY [facility] PRN Reason: Protocol Lactated Ringer's (Lactated Ringer's) 1,000 mls @ 70 mls/hr IV [id number] [facility] Last Admin: 04/23/17 22:44 Dose: 70 mls/hr Ciprofloxacin (Cipro 400mg/200ml Dsw) 400 mg in 200 mls @ 200 mls/hr IVPB Q12@ 0500,1700 [facility] PRN Reason: Protocol Last Admin: 04/24/17 04:16 Dose: 200 mls/hr Ketorolac Tromethamine (Toradol) 15 mg IVP Q6 PRN PRN Reason: Pain, moderate (4-7) Ketorolac Tromethamine (Toradol) 30 mg IVP Q6 PRN PRN Reason: Pain, severe (8-10) Metronidazole (Flagyl) 500 mg PO Q12@0600,1800 [facility] PRN Reason: Protocol Last Admin: 04/24/17 05:58 Dose: 500 mg - Labs Labs: 04/24/17 04:20 04/24/17 04:20 - Constitutional Appears: Well, Older Than Stated Age - Head Exam Head Exam: ATRAUMATIC, NORMAL INSPECTION, NORMOCEPHALIC - Eye Exam Eye Exam: EOMI, Normal appearance, PERRL - ENT Exam ENT Exam: Mucous Membranes Moist - Neck Exam Neck Exam: Full ROM - Respiratory Exam Respiratory Exam: Clear to Ausculation Bilateral, NORMAL BREATHING PATTERN. absent: Wheezes - Cardiovascular Exam Cardiovascular Exam: Irregular Rhythm, +S1, +S2 Additional comments: on palpation of the pulse, irregular rhythm is appreciated. - GI/Abdominal Exam GI & Abdominal Exam: Soft, Tenderness (to palpation of the periumbilical area), Normal Bowel Sounds - Extremities Exam Extremities Exam: Full ROM, Normal Inspection. absent: Pedal Edema - Back Exam Back Exam: NORMAL INSPECTION. absent: CVA tenderness (L), CVA tenderness (R) - Neurological Exam Neurological Exam: Alert, Awake, Normal Gait, Oriented x3 - Psychiatric Exam Psychiatric exam: Normal Affect, Normal Mood - Skin Skin Exam: Dry, Intact, Normal Color, Warm Assessment and Plan - Assessment and Plan (Free Text) Assessment: 71 YO male with PMH of gastritis and H. pylori treatment (2014) is admitted for transverse colitis and bigeminy on monitor and storage bin tender. 1. Abdominal pain -likely secondary to transverse colitis -CT appreciated, findings consistent with acute colitis involving the transverse colon. -Pt given cipro and metro in the ED -will continue pt on cipro D2 and metro D2 -will advance diet -d/c IV fluids -tylenol and toradol for pain 2. Bigeminy on monitor and storage bin tender -no cardiac hx -last admission 02/25 echo done with EF 65 and mild mitral and tricuspid regurg -continue asa -cardiology consulted, follow up recs 3. DVT prop -lovonox 40mg
[2017-04-24] MEDS: Lactated Ringer's 1,000 ML IV SCH (09:21)
[2017-04-24] MEDS: Enoxaparin 40 mg Syringe SC SCH (09:21)
--- NOTE | 2017-04-24 12:15 | CP.PCM.CON ---
History of Present Illness - History of Present Illness History of Present Illness: ASKED TO SEE PT FOR VENT BIGSTEPHANINTricia PT ADMITS TO CP, SUBSTERNAL, NO EXAC OR ALLEVIATING ETIOLOGIES. NON RADIATING, NO ASSOCIATED SYMPTOMS, 4/10 AT WORST. BURNING WITH MILD CRAMPING IN NATURE. PT DENIES OTHER CARDIAC SYMPTOMS. NO SALDAÑA,ORTHOPNEA,PND,DELPHINE. PT DENIES SYNCOPE. TELE SHOWS VENT BIGSTEPHAN WITH BASELINE SR AT 50-60. ECHO ORDERED AND PENDING. PRIOR ECHO IN FEBRUARY REVEALED NML EF. Review of Systems - Constitutional Constitutional: As Per HPI. absent: Anorexia, Chills, Daytime Sleepiness, Excessive Sweating, Fatigue, Fever, Frequent Falls, Headache, Increased Appetite , Lethargy, Malaise, Night Sweats, Snoring, Sleep Apnea, Weight Gain, Weight Loss, Weakness, Other - EENT Eyes: As Per HPI. absent: Blind Spots, Blurred Vision, Change in Vision, Decreased Night Vision, Diplopia, Discharge, Dry Eye, Exophthalmos, Floaters, Irritation, Itchy Eyes, Loss of Peripheral Vision, Pain, Photophobia, Requires Corrective Lenses, Sees Flashes, Spots in Vision, Tunnel Vision, Other Visual Disturbances, Loss of Vision, Other Ears: As Per HPI. absent: Decreased Hearing, Ear Discharge, Ear Pain, Tinnitus , Abnormal Hearing, Disequilibrium, Dizziness, Other Nose/Mouth/Throat: As Per HPI. absent: Epistaxis, Nasal Congestion, Nasal Discharge, Nasal Obstruction, Nasal Trauma, Nose Pain, Post Nasal Drip, Sinus Pain, Sinus Pressure, Bleeding Gums, Change in Voice, Dental Pain, Dry Mouth, Dysphagia, Halitosis, Hoarsness, Lip Swelling, Mouth Lesions, Mouth Pain, Odynophagia, Sore Throat, Throat Swelling, Tongue Swelling, Facial Pain, Neck Pain, Neck Mass, Other - Cardiovascular Cardiovascular: As Per HPI. absent: Acrocyanosis, Chest Pain, Chest Pain at Rest, Chest Pain with Activity, Claudication, Diaphoresis, Dyspnea, Dyspnea on Exertion, Edema, Irregular Heart Rhythm, Pain Radiating to Arm/Neck/Jaw, Leg Edema, Leg Ulcers, Lightheadedness, Orthopnea, Palpitations, Paroxysmal Nocturnal Dyspnea, Pedal Edema, Radiating Pain, Rapid Heart Rate, Slow Heart Rate, Syncope, Other - Respiratory Respiratory: As Per HPI. absent: Cough, Dyspnea, Hemoptysis, Dyspnea on Exertion, Wheezing, Snoring, Stridor, Pain on Inspiration, Chest Congestion, Excessive Mucous Production, Change in Mucous Color, Pain with Coughing, Other - Gastrointestinal Gastrointestinal: As Per HPI, Abdominal Pain, Bloating, Cramping. absent: Belching, Change in Bowel Habits, Change in Stool Character, Coffee Ground Emesis, Constipation, Diarrhea, Dyspepsia, Dysphagia, Early Satiety, Excessive Flatus, Fecal Incontinence, Heartburn, Hematemesis, Hematochezia, Loose Stools, Melena, Nausea, Odynophagia, Temesmus, Vomiting, Other - Genitourinary Genitourinary: As Per HPI. absent: Change in Urinary Stream, Difficulty Urinating, Dysuria, Flank Pain, Hematuria, Pyuria, Nocturia, Urinary Incontinence, Urinary Frequency, Urinary Hesitance, Urinary Urgency, Voiding Freq/Small Amts, Freq UTI, Hx Renal/Bladder Calculi, Hx /Renal Surgery, Bladder Distension, Other - Reproductive: Male Reproductive:Male: As Per HPI - Musculoskeletal Musculoskeletal: As Per HPI. absent: Abnormal Gait, Arthralgias, Atrophy, Back Pain, Deformity, Joint Swelling, Limited Range of Motion, Loss of Height, Muscle Cramps, Muscle Weakness, Myalgias, Neck Pain, Numbness, Radiating Pain into Limb, Stiffness, Tingling, Other - Integumentary Integumentary: As Per HPI. absent: Acne, Alopecia, Bleeding Lesions, Change in Hair, Change in Nails, Change in Pigmentation, Changing Lesions, Dry Skin, Erythema, Furuncle, Hirsutism, Lesions, New Lesions, Non-Healing Lesions, Photosensitivity, Pruritus, Rash, Skin Pain, Skin Ulcer, Sores, Striae, Swelling , Unusual Bruising, Wounds, Jaundice, Other - Neurological Neurological: As Per HPI. absent: Abnormal Gait, Abnormal Hearing, Abnormal Movements, Abnormal Speech, Behavioral Changes, Burning Sensations, Confusion, Convulsions, Disequilibrium, Dizziness, Numbness, Focal Weakness, Frequent Falls , Headaches, Lack of Coordination, Loss of Vision, Memory Loss, Paresthesias, Radicular Pain, Restless Legs, Sensory Deficit, Syncope, Tingling, Tremor, Vertigo, Weakness, Other Visual Disturbances, Other - Psychiatric Psychiatric: As Per HPI. absent: Abnormal Sleep Pattern, Anhedonia, Anxiety, Auditory Hallucinations, Behavioral Changes, Change in Appetite, Change in Libido, Confusion, Depression, Difficulty Concentrating, Hallucinations, Homicidal Ideation, Hopelessness, Irritability, Memory Loss, Mood Swings, Panic Attacks, Paranoia, Suicidal Ideation, Visual Hallucinations, Tactile Hallucinations, Other - Endocrine Endocrine: As Per HPI. absent: Change in Body Appearance, Change in Libido, Cold Intolorance, Deepening of Voice, Excessive Sweating, Fatigue, Flushing, Heat Intolorance, Increase in Ring/Shoe/Hat Size, Palpitations, Polydipsia, Polyphagia, Polyuria, Other - Hematologic/Lymphatic Hematologic: As Per HPI. absent: Easy Bleeding, Easy Bruising, Lymphadenopathy , Other Past Patient History - Infectious Disease Hx of Infectious Diseases: None - Tetanus Immunizations Tetanus Immunization: Unknown - Past Medical History & Family History Past Medical History?: No - Past Social History Smoking Status: Never Smoked Alcohol: None Drugs: Denies - CARDIAC Hx Atrial Fibrillation: No Hx Congestive Heart Failure: No Hx Hypercholesterolemia: No Hx Hypertension: No Hx Peripheral Edema: No - PULMONARY Hx Asthma: No Hx Bronchitis: No Hx Chronic Obstructive Pulmonary Disease (COPD): No Hx Emphysema: No Hx Pneumonia: No Hx Pulmonary Embolism: No - NEUROLOGICAL Hx Neurological Disorder: No - ENDOCRINE/METABOLIC Hx Endocrine Disorders: No - HEMATOLOGICAL/ONCOLOGICAL Hx Blood Disorders: No Hx Blood Transfusions: No - MUSCULOSKELETAL/RHEUMATOLOGICAL Hx Back Pain: Yes Hx Falls: No - GASTROINTESTINAL Hx Gastritis: Yes - GENITOURINARY/GYNECOLOGICAL Hx Prostate Problems: Yes - PSYCHIATRIC Hx Emotional Abuse: No Hx Physical Abuse: No Hx Substance Use: No - SURGICAL HISTORY Hx Surgeries: Yes Other/Comment: OPEN PROSTATECTOMY - ANESTHESIA Hx Anesthesia: Yes Hx Anesthesia Reactions: No Hx Malignant Hyperthermia: No Meds Allergies/Adverse Reactions: Allergies Allergy/AdvReac Type Severity Reaction Status Date / Time No Known Allergies Allergy Verified 04/23/17 10:48 - Medications Medications: Current Medications Acetaminophen (Tylenol 325mg Tab) 650 mg PO Q6 PRN PRN Reason: Pain, Mild (1-3) Aspirin (Aspirin Chewable) 81 mg PO DAILY [facility] Last Admin: 04/24/17 09:22 Dose: 81 mg Enoxaparin Sodium (Lovenox) 40 mg SC DAILY [facility] PRN Reason: Protocol Last Admin: 04/24/17 09:21 Dose: 40 mg Lactated Ringer's (Lactated Ringer's) 1,000 mls @ 70 mls/hr IV .[id number] [facility] Last Admin: 04/24/17 09:21 Dose: 70 mls/hr Ciprofloxacin (Cipro 400mg/200ml Dsw) 400 mg in 200 mls @ 200 mls/hr IVPB Q12@ 0500,1700 [facility] PRN Reason: Protocol Last Admin: 04/24/17 04:16 Dose: 200 mls/hr Ketorolac Tromethamine (Toradol) 15 mg IVP Q6 PRN PRN Reason: Pain, moderate (4-7) Ketorolac Tromethamine (Toradol) 30 mg IVP Q6 PRN PRN Reason: Pain, severe (8-10) Metronidazole (Flagyl) 500 mg PO Q12@0600,1800 [facility] PRN Reason: Protocol Last Admin: 04/24/17 05:58 Dose: 500 mg Physical Exam - Constitutional Appears: Well - Head Exam Head Exam: ATRAUMATIC, NORMAL INSPECTION, NORMOCEPHALIC - Eye Exam Eye Exam: EOMI, Normal appearance, PERRL. absent: Conjunctival injection, Nystagmus, Periorbital swelling, Periorbital tenderness, Scleral icterus Pupil Exam: NORMAL ACCOMODATION, PERRL. absent: Fixed, Irregular, Miosis, Mydriatic, Unequal - ENT Exam ENT Exam: Mucous Membranes Moist, Normal Exam. absent: Mucous Membranes Dry, Normal External Ear Exam, Normal Oropharynx, TM's Normal Bilaterally - Neck Exam Neck exam: Positive for: Normal Inspection. Negative for: Full Rom, Lymphadenopathy, Meningismus, Tenderness, Thyromegaly - Respiratory Exam Respiratory Exam: Clear to Auscultation Bilateral, NORMAL BREATHING PATTERN. absent: Accessory Muscle Use, Chest Wall Tenderness, Decreased Breath Sounds, Prolonged Expiratory Phase, Rales, Rhonchi, Wheezes, Respiratory Distress, Stridor - Cardiovascular Exam Cardiovascular Exam: Bradycardia, Irregular Rhythm, +S1, +S2, Systolic Murmur. absent: Tachycardia, Clicks, Diastolic murmur, Gallop, REGULAR RHYTHM, JVD, RRR , Rubs, +S4 - GI/Abdominal Exam GI & Abdominal Exam: Normal Bowel Sounds, Soft. absent: Bruit, Diminished Bowel Sounds, Distended, Firm, Guarding, Hernia, Hyperactive Bowel Sounds, Hypoactive Bowel Sounds, Mass, Organomegaly, Pulsatile Mass, Rebound, Rigid, Tenderness - Rectal Exam Rectal Exam: Deferred, NORMAL INSPECTION - Extremities Exam Extremities exam: Positive for: normal inspection. Negative for: calf tenderness, full ROM, joint swelling, normal capillary refill, pedal edema, tenderness, pedal pulses present - Back Exam Back exam: NORMAL INSPECTION. absent: CVA tenderness (L), CVA tenderness (R), FULL ROM, muscle spasm, paraspinal tenderness, rash noted, tenderness, vertebral tenderness - Neurological Exam Neurological exam: Alert, CN II-XII Intact, Normal Gait, Oriented x3, Reflexes Normal - Psychiatric Exam Psychiatric exam: Normal Affect, Normal Mood - Skin Skin Exam: Dry, Intact, Normal Color, Warm Results - Vital Signs Recent Vital Signs: Last Vital Signs Temp 98.5 F 04/24/17 08:17 Pulse 53 L 04/24/17 08:17 Resp 20 04/24/17 08:17 BP 117/60 04/24/17 08:17 Pulse Ox 96 04/24/17 08:17 - Labs Result Diagrams: 04/24/17 04:20 04/24/17 04:20 Labs: Laboratory Results - last 24 hr 04/23/17 04/24/17 04/24/17 14:20 04:20 04:20 WBC 5.3 RBC 4.26 L Hgb 13.2 Hct 39.1 MCV 91.8 MCH 31.0 MCHC 33.7 RDW 13.9 Plt Count 189 Sodium 139 Potassium 3.9 Chloride 105 Carbon Dioxide 26 Anion Gap 12 BUN 13 Creatinine 0.8 Est GFR ( Amer) > 60 Est GFR (Non-Af Amer) > 60 Random Glucose 108 Calcium 8.4 Phosphorus 3.8 Magnesium 1.9 Urine Color Yellow Urine Clarity Clear Urine pH 6.0 Ur Specific Cobb 1.018 Urine Protein Negative Urine Glucose (UA) Neg Urine Ketones Negative Urine Blood Negative Urine Nitrate Negative Urine Bilirubin Negative Urine Urobilinogen 0.2-1.0 Ur Leukocyte Esterase Neg Urine RBC (Auto) 3 Urine Microscopic WBC < 1 Assessment & Plan (1) Bigeminy Status: Acute (2) Colitis Status: Acute (3) Abdominal pain Status: Acute (4) Chest pain Status: Acute - Assessment and Plan (Free Text) Plan: GIVE MAG AND KCL CHECK ECHO LOW DOSE METOPROLOL CONT TELE ATYPICAL CP LIKELY DUE TO GERD 60 MIN TOTAL CARE TIME.
[2017-04-24] MEDS ORDERED: Potassium Chloride 20 mEq/15 ml LIQ UD PO ONE (16:37)
[2017-04-24] MEDS ORDERED: Magnesium Sulfate 2 gm/50 ml 2 GM/50 ML BAG IVPB ONE (16:50)
[2017-04-25] MEDS: Ciprofloxacin 400mg/200ml D5W 400 MG/200 ML BAG IVPB SCH ×2 (05:10→16:23)
[2017-04-25] MEDS: Enoxaparin 40 mg Syringe SC SCH (09:34)
--- NOTE | 2017-04-25 10:41 | CP.PCM.PN ---
Subjective - Date & Time of Evaluation Date of Evaluation: 04/25/17 Time of Evaluation: 09:50 - Subjective Subjective: Pt seen and examined at bedside, pt had just returned from the cardiology suite where he went down to have echo done but was not done due to pt's last echo being February 2017, does not have any complaints this morning, pt vitals shows evidence of bradycardia but denies sob, dizziness, chest pain or visual changes. Pt was started on a low dose beta-keke yesterday by cardiology Called Cardiology with attendant, explained reasoning behind repeat echo, pt will be going down today for echo Objective - Vital Signs/Intake and Output Vital Signs (last 24 hours): Temp Pulse Resp BP Pulse Ox 97.9 F 54 L 18 105/58 L 97 04/25/17 08:21 04/25/17 08:21 04/25/17 08:21 04/25/17 08:21 04/25/17 08:21 - Medications Medications: Current Medications Acetaminophen (Tylenol 325mg Tab) 650 mg PO Q6 PRN PRN Reason: Pain, Mild (1-3) Aspirin (Aspirin Chewable) 81 mg PO DAILY [facility] Last Admin: 04/25/17 09:33 Dose: 81 mg Enoxaparin Sodium (Lovenox) 40 mg SC DAILY [facility] PRN Reason: Protocol Last Admin: 04/25/17 09:34 Dose: 40 mg Ciprofloxacin (Cipro 400mg/200ml Dsw) 400 mg in 200 mls @ 200 mls/hr IVPB Q12@ 0500,1700 [facility] PRN Reason: Protocol Last Admin: 04/25/17 05:10 Dose: 200 mls/hr Ketorolac Tromethamine (Toradol) 15 mg IVP Q6 PRN PRN Reason: Pain, moderate (4-7) Ketorolac Tromethamine (Toradol) 30 mg IVP Q6 PRN PRN Reason: Pain, severe (8-10) Metoprolol Tartrate (Lopressor) 6.25 mg PO Q12 [facility] Last Admin: 04/25/17 09:34 Dose: Not Given Metronidazole (Flagyl) 500 mg PO Q12@0600,1800 [facility] PRN Reason: Protocol Last Admin: 04/25/17 05:11 Dose: 500 mg - Labs Labs: 04/24/17 04:20 04/24/17 04:20 - Constitutional Appears: Non-toxic, No Acute Distress - Head Exam Head Exam: NORMOCEPHALIC - Eye Exam Eye Exam: Normal appearance - ENT Exam ENT Exam: Mucous Membranes Moist - Respiratory Exam Respiratory Exam: Clear to Ausculation Bilateral, NORMAL BREATHING PATTERN. absent: Rhonchi, Wheezes - Cardiovascular Exam Cardiovascular Exam: REGULAR RHYTHM, +S1, +S2 - GI/Abdominal Exam GI & Abdominal Exam: Soft, Normal Bowel Sounds. absent: Tenderness - Extremities Exam Extremities Exam: absent: Calf Tenderness, Pedal Edema - Neurological Exam Neurological Exam: Alert, Awake, Oriented x3 Assessment and Plan - Assessment and Plan (Free Text) Assessment: 71 y/o male with PMH of gastritis and H. pylori treatment (2014) is admitted for transverse colitis and bigeminy on quality assurance monitor body. 1. Abdominal pain -Improved -likely secondary to transverse colitis -CT appreciated, findings consistent with acute colitis involving the transverse colon. - cipro and metro D3 -tylenol and toradol for pain 2. Bigeminy on quality assurance monitor body -previous observed for ACS ruled out 02/2017, negative work up -02/25/17 echo done with EF 65 and mild mitral and tricuspid regurg -continue asa -director emergency department gave dose of Mg and KCL; also started pt on Metoprolol 6.25mg Q12 -pt having episode of bradycardia but remain asymptomatic, awaiting further recs from cardiology -repeat echo pending, f/u 3. Diet- Heart healthy 4. DVT prop- lovonox 40mg
[2017-04-25] MEDS ORDERED: Potassium Chloride 20 mEq/15 ml LIQ UD PO ONE (15:00)
[2017-04-25] MEDS ORDERED: Magnesium Sulfate 2 gm/50 ml 2 GM/50 ML BAG IVPB ONE (15:00)
[2017-04-26] MEDS: Ciprofloxacin 400mg/200ml D5W 400 MG/200 ML BAG IVPB SCH ×2 (05:04→17:45)
[2017-04-26] MEDS: Enoxaparin 40 mg Syringe SC SCH (09:22)
--- NOTE | 2017-04-26 10:35 | CP.PCM.PN ---
Subjective - Date & Time of Evaluation Date of Evaluation: 04/26/17 Time of Evaluation: 10:33 - Subjective Subjective: HD 4 71 YO male with PMH of gastritis admitted for colitis and bigeminy. S: No acute overnight events. Pt remains in tele for cardiac monitoring. Pt states that he feels well, abdominal pain is minimal. Pt has HR in the 50's but remains symptomatic, states that he is walking comfortably. Denies chest pain/ discomfort, dyspnea, palpatations, dizziness, n/v/d/c and remains afebrile. Objective - Vital Signs/Intake and Output Vital Signs (last 24 hours): Temp Pulse Resp BP Pulse Ox 97.5 F L 52 L 18 130/80 98 04/26/17 07:57 04/26/17 09:21 04/26/17 07:57 04/26/17 07:57 04/26/17 07:57 - Medications Medications: Current Medications Acetaminophen (Tylenol 325mg Tab) 650 mg PO Q6 PRN PRN Reason: Pain, Mild (1-3) Aspirin (Aspirin Chewable) 81 mg PO DAILY [facility] Last Admin: 04/26/17 09:22 Dose: 81 mg Enoxaparin Sodium (Lovenox) 40 mg SC DAILY [facility] PRN Reason: Protocol Last Admin: 04/26/17 09:22 Dose: 40 mg Ciprofloxacin (Cipro 400mg/200ml Dsw) 400 mg in 200 mls @ 200 mls/hr IVPB Q12@ 0500,1700 [facility] PRN Reason: Protocol Last Admin: 04/26/17 05:04 Dose: 200 mls/hr Ketorolac Tromethamine (Toradol) 15 mg IVP Q6 PRN PRN Reason: Pain, moderate (4-7) Ketorolac Tromethamine (Toradol) 30 mg IVP Q6 PRN PRN Reason: Pain, severe (8-10) Metoprolol Tartrate (Lopressor) 6.25 mg PO Q12 [facility] Last Admin: 04/26/17 09:21 Dose: Not Given Metronidazole (Flagyl) 500 mg PO Q12@0600,1800 [facility] PRN Reason: Protocol Last Admin: 04/26/17 05:03 Dose: 500 mg - Labs Labs: 04/24/17 04:20 04/24/17 04:20 - Constitutional Appears: Well, Non-toxic, No Acute Distress - Head Exam Head Exam: ATRAUMATIC, NORMAL INSPECTION - Eye Exam Eye Exam: EOMI, Normal appearance - ENT Exam ENT Exam: Mucous Membranes Moist - Neck Exam Neck Exam: Full ROM - Respiratory Exam Respiratory Exam: Clear to Ausculation Bilateral, NORMAL BREATHING PATTERN - Cardiovascular Exam Cardiovascular Exam: REGULAR RHYTHM, +S1, +S2 - GI/Abdominal Exam GI & Abdominal Exam: Soft, Tenderness (mild tenderness to palpatations, in the [place]-umbilical area), Normal Bowel Sounds - Extremities Exam Extremities Exam: Full ROM, Normal Capillary Refill, Normal Inspection. absent : Pedal Edema, Tenderness - Back Exam Back Exam: NORMAL INSPECTION. absent: CVA tenderness (L), CVA tenderness (R) - Neurological Exam Neurological Exam: Alert, Awake, Oriented x3 - Psychiatric Exam Psychiatric exam: Normal Affect, Normal Mood - Skin Skin Exam: Dry, Intact, Normal Color, Warm Assessment and Plan - Assessment and Plan (Free Text) Assessment: 71 y/o male with PMH of gastritis and H. pylori treatment (2014) is admitted for transverse colitis and bigeminy on lunchroom monitor. 1. Abdominal pain -Improved -likely secondary to transverse colitis -CT appreciated, findings consistent with acute colitis involving the transverse colon. -cipro and metro D4 -tylenol and toradol for pain 2. Bigeminy on lunchroom monitor -previous observed for ACS ruled out 02/2017, negative work up -02/25/17 echo done with EF 65-70% and mild mitral and tricuspid regurg -trops x 3 neg -continue asa -heel sorter gave dose of Mg and KCL; also started pt on Metoprolol 6.25mg Q12 -echo appreciated, systolic function is moderately impaired, EF 35-40% with global hypokinesis of the left ventricle -pt having episodes of bradycardia, HR 50-58 but remain asymptomatic, awaiting further recs from cardiology 3. Diet- Heart healthy 4. DVT prop- lovonox 40mg
--- NOTE | 2017-04-26 10:51 | CARD ---
APPROVED REPORT EXAM: Two-dimensional and M-mode echocardiogram with Doppler and color Doppler. Other Information Quality : GoodRhythm : NSR INDICATION Abnormal EKG/Arrhythmia 2D DIMENSIONS Left Atrium (2D)3.33 (1.6-4.0cm)IVSd1.34 (0.7-1.1cm) Aortic Root (2D)3.50 (2.0-3.7cm)LVDd4.40 (3.9-5.9cm) LVOT Diameter2.07 (1.8-2.4cm)PWd0.85 (0.7-1.1cm) IVSs1.31 (0.8-1.2cm)LVDs3.87 (2.5-4.0cm) FS (%) 12.1 %PWs1.42 (0.8-1.2cm) M-Mode DIMENSIONS Left Atrium (MM)3.33 (2.5-4.0cm)IVSd1.23 (0.7-1.1cm) Aortic Root3.50 (2.2-3.7cm)LVDd4.97 (4.0-5.6cm) Aortic Cusp Exc.2.17 (1.5-2.0cm)PWd1.27 (0.7-1.1cm) IVSs1.40 cmFS (%) 24 % LVDs3.77 (2.0-3.8cm)PWs1.43 cm Mitral Valve MV E Aorvovlg45.0cm/sMV DECEL [id number] A Itfrasbk14.9cm/s MV UCY12gyG/A ratio0.9MVA (PHT)2.47cm2 TDI Lateral E' Peak V9.86cm/sMedial E' Peak V9.53cm/sE/Lateral E'6.6 E/Medial E'6.8 Tricuspid Valve TR Peak Cryiuidp372tz/sRAP [id number] Peak Gr.14mmHg [id number] LEFT VENTRICLE The left ventricle is normal size. There is normal left ventricular wall thickness. The systolic function is moderately impaired. The Ejection Fraction is 35-40%. There is global hypokinesis of the left ventricle. Transmitral Doppler flow pattern is Grade I-abnormal relaxation pattern. No left ventricle thrombus noted on this study. There is no mass noted in the left ventricle. RIGHT VENTRICLE The right ventricle is normal size. There is normal right ventricular wall thickness. The right ventricular systolic function is normal. ATRIA The left atrium size is normal. The right atrium size is normal. The interatrial septum is intact with no evidence for an atrial septal defect. AORTIC VALVE The aortic valve is normal in structure and function. No aortic regurgitation is present. There is no aortic valvular stenosis. There is no aortic valvular vegetation. MITRAL VALVE The mitral valve is normal in structure and function. There is no evidence of mitral valve prolapse. There is no mitral valve stenosis. There is no mitral valve regurgitation noted. TRICUSPID VALVE The tricuspid valve is normal in structure and function. There is no tricuspid valve regurgitation noted. There is no tricuspid valve prolapse or vegetation. There is no tricuspid valve stenosis. PULMONIC VALVE The pulmonary valve is normal in structure and function. There is no pulmonic valvular regurgitation. There is no pulmonic valvular stenosis. GREAT VESSELS The aortic root is normal in size. The IVC is normal in size and collapses >50% with inspiration. PERICARDIAL EFFUSION The pericardium appears normal. There is no pleural effusion. <Conclusion> The left ventricle is normal size. The systolic function is moderately impaired. The Ejection Fraction is 35-40%. There is global hypokinesis of the left ventricle.
--- NOTE | 2017-04-26 12:30 | CP.PCM.PN ---
Subjective - Date & Time of Evaluation Date of Evaluation: 04/25/17 Time of Evaluation: 12:00 - Subjective Subjective: LESS CP, NO PALP Objective - Vital Signs/Intake and Output Vital Signs (last 24 hours): Temp Pulse Resp BP Pulse Ox 98.1 F 52 L 18 121/69 97 04/26/17 12:26 04/26/17 12:26 04/26/17 12:26 04/26/17 12:26 04/26/17 12:26 - Medications Medications: Current Medications Acetaminophen (Tylenol 325mg Tab) 650 mg PO Q6 PRN PRN Reason: Pain, Mild (1-3) Aspirin (Aspirin Chewable) 81 mg PO DAILY [facility] Last Admin: 04/26/17 09:22 Dose: 81 mg Enoxaparin Sodium (Lovenox) 40 mg SC DAILY [facility] PRN Reason: Protocol Last Admin: 04/26/17 09:22 Dose: 40 mg Ciprofloxacin (Cipro 400mg/200ml Dsw) 400 mg in 200 mls @ 200 mls/hr IVPB Q12@ 0500,1700 [facility] PRN Reason: Protocol Last Admin: 04/26/17 05:04 Dose: 200 mls/hr Ketorolac Tromethamine (Toradol) 15 mg IVP Q6 PRN PRN Reason: Pain, moderate (4-7) Ketorolac Tromethamine (Toradol) 30 mg IVP Q6 PRN PRN Reason: Pain, severe (8-10) Lactobacillus Acidophilus (Bacid Acidophilus) 1 cap PO BID [facility] Metoprolol Tartrate (Lopressor) 6.25 mg PO Q12 [facility] Last Admin: 04/26/17 09:21 Dose: Not Given Metronidazole (Flagyl) 500 mg PO Q12@0600,1800 [facility] PRN Reason: Protocol Last Admin: 04/26/17 05:03 Dose: 500 mg - Labs Labs: 04/24/17 04:20 04/24/17 04:20 - Constitutional Appears: Well - Head Exam Head Exam: ATRAUMATIC, NORMAL INSPECTION, NORMOCEPHALIC - Eye Exam Eye Exam: EOMI, Normal appearance, PERRL. absent: Conjunctival injection, Nystagmus, Periorbital swelling, Periorbital tenderness, Scleral icterus Pupil Exam: NORMAL ACCOMODATION, PERRL - ENT Exam ENT Exam: Mucous Membranes Moist, Normal Exam. absent: Mucous Membranes Dry, Normal External Ear Exam, Normal Oropharynx, TM's Normal Bilaterally - Neck Exam Neck Exam: Full ROM, Normal Inspection. absent: Lymphadenopathy, Meningismus, Tenderness, Thyromegaly - Respiratory Exam Respiratory Exam: Clear to Ausculation Bilateral, NORMAL BREATHING PATTERN. absent: Accessory Muscle Use, Chest Wall Tenderness, Decreased Breath Sounds, Prolonged Expiratory Phase, Rales, Rhonchi, Wheezes, Respiratory Distress, Stridor - Cardiovascular Exam Cardiovascular Exam: REGULAR RHYTHM, +S1, +S2, Murmur. absent: Bradycardia, Tachycardia, Clicks, Diastolic murmur, Gallop, Irregular Rhythm, JVD, RRR, Rubs , +S4 - GI/Abdominal Exam GI & Abdominal Exam: Soft, Normal Bowel Sounds. absent: Bruit, Distended, Firm , Guarding, Rigid, Tenderness, Diminished Bowel Sounds, Hernia, Hyperactive Bowel Sounds, Hypoactive Bowel Sounds, Organomegaly, Pulsatile Mass, Rebound, Mass - Rectal Exam Rectal Exam: Deferred - Extremities Exam Extremities Exam: Full ROM, Normal Capillary Refill, Normal Inspection. absent : Calf Tenderness, Joint Swelling, Pedal Edema, Tenderness - Back Exam Back Exam: NORMAL INSPECTION. absent: CVA tenderness (L), CVA tenderness (R), Full ROM, muscle spasm, paraspinal tenderness, rash noted, tenderness, vertebral tenderness - Neurological Exam Neurological Exam: Alert, Awake, CN II-XII Intact, Normal Gait, Oriented x3. absent: Abnormal Gait, Altered, Motor Sensory Deficit, Reflexes Normal - Psychiatric Exam Psychiatric exam: Normal Affect, Normal Mood. absent: Agitated, Anxious, Depressed, Flat Affect, Homicidal Ideation, Manic, Suicidal Ideation - Skin Skin Exam: Dry, Intact, Normal Color, Warm. absent: Abrasion, Cyanosis, Diaphoretic, Erythema, Mottled, Pallor, Pallor, Petechiae, Rash, Urticaria, Vesicles Assessment and Plan (1) Bigeminy Status: Acute (2) Colitis Status: Acute (3) Abdominal pain Status: Acute (4) Chest pain Status: Acute - Assessment and Plan (Free Text) Plan: DECREASED VENT ECTOPY ON TELE - NOW OCCASIONAL PVCS UNIFOCAL IN NATURE. MONITOR LYTES AWAIT ECHO CONT LOW DOSE BB 45 MIN
--- NOTE | 2017-04-26 12:30 | CP.PCM.PN ---
Subjective - Date & Time of Evaluation Date of Evaluation: 04/26/17 Time of Evaluation: 12:30 - Subjective Subjective: NO SX OF PALP OR DIZZINESS. Objective - Vital Signs/Intake and Output Vital Signs (last 24 hours): Temp Pulse Resp BP Pulse Ox 98.1 F 52 L 18 121/69 97 04/26/17 12:26 04/26/17 12:26 04/26/17 12:26 04/26/17 12:26 04/26/17 12:26 - Medications Medications: Current Medications Acetaminophen (Tylenol 325mg Tab) 650 mg PO Q6 PRN PRN Reason: Pain, Mild (1-3) Aspirin (Aspirin Chewable) 81 mg PO DAILY [facility] Last Admin: 04/26/17 09:22 Dose: 81 mg Enoxaparin Sodium (Lovenox) 40 mg SC DAILY [facility] PRN Reason: Protocol Last Admin: 04/26/17 09:22 Dose: 40 mg Ciprofloxacin (Cipro 400mg/200ml Dsw) 400 mg in 200 mls @ 200 mls/hr IVPB Q12@ 0500,1700 [facility] PRN Reason: Protocol Last Admin: 04/26/17 05:04 Dose: 200 mls/hr Ketorolac Tromethamine (Toradol) 15 mg IVP Q6 PRN PRN Reason: Pain, moderate (4-7) Ketorolac Tromethamine (Toradol) 30 mg IVP Q6 PRN PRN Reason: Pain, severe (8-10) Lactobacillus Acidophilus (Bacid Acidophilus) 1 cap PO BID [facility] Metoprolol Tartrate (Lopressor) 6.25 mg PO Q12 [facility] Last Admin: 04/26/17 09:21 Dose: Not Given Metronidazole (Flagyl) 500 mg PO Q12@0600,1800 [facility] PRN Reason: Protocol Last Admin: 04/26/17 05:03 Dose: 500 mg - Labs Labs: 04/24/17 04:20 04/24/17 04:20 - Constitutional Appears: Well - Head Exam Head Exam: ATRAUMATIC, NORMAL INSPECTION, NORMOCEPHALIC - Eye Exam Eye Exam: EOMI, Normal appearance, PERRL. absent: Conjunctival injection, Nystagmus, Periorbital swelling, Periorbital tenderness, Scleral icterus Pupil Exam: NORMAL ACCOMODATION, PERRL - ENT Exam ENT Exam: Mucous Membranes Moist, Normal Exam. absent: Mucous Membranes Dry, Normal External Ear Exam, Normal Oropharynx, TM's Normal Bilaterally - Neck Exam Neck Exam: Full ROM, Normal Inspection. absent: Lymphadenopathy, Meningismus, Tenderness, Thyromegaly - Respiratory Exam Respiratory Exam: Clear to Ausculation Bilateral, NORMAL BREATHING PATTERN. absent: Accessory Muscle Use, Chest Wall Tenderness, Decreased Breath Sounds, Prolonged Expiratory Phase, Rales, Rhonchi, Wheezes, Respiratory Distress, Stridor - Cardiovascular Exam Cardiovascular Exam: REGULAR RHYTHM, +S1, +S2, Murmur. absent: Bradycardia, Tachycardia, Clicks, Diastolic murmur, Gallop, Irregular Rhythm, JVD, RRR, Rubs , +S4 - GI/Abdominal Exam GI & Abdominal Exam: Soft, Normal Bowel Sounds. absent: Bruit, Distended, Firm , Guarding, Rigid, Tenderness, Diminished Bowel Sounds, Hernia, Hyperactive Bowel Sounds, Hypoactive Bowel Sounds, Organomegaly, Pulsatile Mass, Rebound, Mass - Rectal Exam Rectal Exam: Deferred - Extremities Exam Extremities Exam: Full ROM, Normal Capillary Refill, Normal Inspection. absent : Calf Tenderness, Joint Swelling, Pedal Edema, Tenderness - Back Exam Back Exam: NORMAL INSPECTION. absent: CVA tenderness (L), CVA tenderness (R), Full ROM, muscle spasm, paraspinal tenderness, rash noted, tenderness, vertebral tenderness - Neurological Exam Neurological Exam: Alert, Awake, CN II-XII Intact, Normal Gait, Oriented x3. absent: Abnormal Gait, Altered, Motor Sensory Deficit, Reflexes Normal - Psychiatric Exam Psychiatric exam: Normal Affect, Normal Mood. absent: Agitated, Anxious, Depressed, Flat Affect, Homicidal Ideation, Manic, Suicidal Ideation - Skin Skin Exam: Dry, Intact, Normal Color, Warm. absent: Abrasion, Cyanosis, Diaphoretic, Erythema, Mottled, Pallor, Pallor, Petechiae, Rash, Urticaria, Vesicles Assessment and Plan (1) Bigeminy Status: Acute (2) Colitis Status: Acute (3) Abdominal pain Status: Acute (4) Chest pain Status: Acute - Assessment and Plan (Free Text) Plan: ECHO READ DECREASED EF. I REVIEWED IMAGES, EF IS NORMAL. ECTOPIC BEATS REVEAL DECREASED CONTRACTILITY (WHICH IS TO BE EXPECTED), HOWEVER EF APPEARS NORMAL WHEN ECTOPY NOT PRESENT. NEED TO CONSIDER EP CONSULT. CONT CURRENT MEDS.
[2017-04-26] MEDS: Lactobacillus Acidophilus 500 MU Cap PO SCH (17:45)
[2017-04-27] MEDS: Ciprofloxacin 400mg/200ml D5W 400 MG/200 ML BAG IVPB SCH (05:43)
[2017-04-27] MEDS: Enoxaparin 40 mg Syringe SC SCH (09:54)
[2017-04-27] MEDS: Lactobacillus Acidophilus 500 MU Cap PO SCH ×2 (09:57→17:46)
--- NOTE | 2017-04-27 12:53 | CP.PCM.PN ---
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 Pt states that his abdominal pain is minimal. He endorses occasional palpitations but denies chest pain/discomfort, dyspnea. Pt is able to ambulate without any difficulties. Remains febrile. on note, pt is Hebrew speaking cyracom used ([id number]). Objective - Vital Signs/Intake and Output Vital Signs (last 24 hours): Temp Pulse Resp BP Pulse Ox 98.3 F 60 20 123/71 96 04/27/17 12:41 04/27/17 12:41 04/27/17 12:41 04/27/17 12:41 04/27/17 12:41 - Medications Medications: Current Medications Acetaminophen (Tylenol 325mg Tab) 650 mg PO Q6 PRN PRN Reason: Pain, Mild (1-3) Aspirin (Aspirin Chewable) 81 mg PO DAILY [facility] Last Admin: 04/27/17 09:57 Dose: 81 mg Ciprofloxacin (Cipro) 500 mg PO Q12 [facility] PRN Reason: Protocol Enoxaparin Sodium (Lovenox) 40 mg SC DAILY [facility] PRN Reason: Protocol Last Admin: 04/27/17 09:54 Dose: 40 mg Ketorolac Tromethamine (Toradol) 15 mg IVP Q6 PRN PRN Reason: Pain, moderate (4-7) Ketorolac Tromethamine (Toradol) 30 mg IVP Q6 PRN PRN Reason: Pain, severe (8-10) Lactobacillus Acidophilus (Bacid Acidophilus) 1 cap PO BID [facility] Last Admin: 04/27/17 09:57 Dose: 1 cap Metoprolol Tartrate (Lopressor) 6.25 mg PO Q12 [facility] Last Admin: 04/27/17 09:55 Dose: 6.25 mg Metronidazole (Flagyl) 500 mg PO Q12@0600,1800 [facility] PRN Reason: Protocol Last Admin: 04/27/17 05:44 Dose: 500 mg - Labs Labs: 04/24/17 04:20 04/24/17 04:20 - Constitutional Appears: No Acute Distress - Head Exam Head Exam: ATRAUMATIC, NORMAL INSPECTION - Eye Exam Eye Exam: EOMI, Normal appearance - ENT Exam ENT Exam: Mucous Membranes Moist - Neck Exam Neck Exam: Full ROM - Respiratory Exam Respiratory Exam: Clear to Ausculation Bilateral, NORMAL BREATHING PATTERN. absent: Wheezes - Cardiovascular Exam Cardiovascular Exam: Bradycardia, REGULAR RHYTHM, +S1, +S2 - GI/Abdominal Exam GI & Abdominal Exam: Soft, Normal Bowel Sounds. absent: Guarding, Tenderness, Mass - Extremities Exam Extremities Exam: Full ROM, Normal Inspection. absent: Pedal Edema, Tenderness - Back Exam Back Exam: NORMAL INSPECTION. absent: CVA tenderness (L), CVA tenderness (R) - Neurological Exam Neurological Exam: Alert, Awake, Normal Gait - Psychiatric Exam Psychiatric exam: Normal Affect, Normal Mood - Skin Skin Exam: Dry, Intact, Normal Color, Warm Assessment and Plan - Assessment and Plan (Free Text) Assessment: 71 y/o male with PMH of gastritis and H. 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 Abx D5 1. Abdominal pain- resolved -likely secondary to transverse colitis -CT appreciated, findings consistent with acute colitis involving the transverse colon. -cipro and metro D5 -tylenol and toradol for pain 2. Bigeminy on integrity engineer -previous observed for ACS ruled out 02/2017, negative work up -02/25/17 echo done with EF 65-70% and mild mitral and tricuspid regurg -trops x 3 neg -continue asa -blow down helper gave dose of Mg and KCL; also started pt on Metoprolol 6.25mg Q12 -echo appreciated, systolic function is moderately impaired, EF 35-40% with global hypokinesis of the left ventricle -pt is having bradycardia with HR 50-61, remains asymptomatic -spoke to Dr. Nam about bradycardia and low EF, he recommends consulting Dr. Leon for cardiac electrophysiology. -will follow recs 3. Diet- Heart healthy 4. DVT prop- lovonox 40mg
--- NOTE | 2017-04-27 22:00 | CP.PCM.PN ---
Subjective - Date & Time of Evaluation Date of Evaluation: 04/27/17 Time of Evaluation: 21:58 - Subjective Subjective: pt without recurrent sx. remains jodi. hr did not increase with ambulation, however he got his first dose of metoprolol today. tele reveals hr between 55 and 71. increased ectopy today. Objective - Vital Signs/Intake and Output Vital Signs (last 24 hours): Temp Pulse Resp BP Pulse Ox 97.9 F 55 L 18 133/74 98 04/27/17 20:02 04/27/17 21:34 04/27/17 20:02 04/27/17 21:34 04/27/17 20:02 Intake and Output: 04/27/17 04/28/17 18:59 06:59 Intake Total 810 Balance 810 - Medications Medications: Current Medications Acetaminophen (Tylenol 325mg Tab) 650 mg PO Q6 PRN PRN Reason: Pain, Mild (1-3) Aspirin (Aspirin Chewable) 81 mg PO DAILY [facility] Last Admin: 04/27/17 09:57 Dose: 81 mg Ciprofloxacin (Cipro) 500 mg PO Q12 [facility] PRN Reason: Protocol Last Admin: 04/27/17 21:36 Dose: 500 mg Enoxaparin Sodium (Lovenox) 40 mg SC DAILY [facility] PRN Reason: Protocol Last Admin: 04/27/17 09:54 Dose: 40 mg Ketorolac Tromethamine (Toradol) 15 mg IVP Q6 PRN PRN Reason: Pain, moderate (4-7) Ketorolac Tromethamine (Toradol) 30 mg IVP Q6 PRN PRN Reason: Pain, severe (8-10) Lactobacillus Acidophilus (Bacid Acidophilus) 1 cap PO BID [facility] Last Admin: 04/27/17 17:46 Dose: Not Given Metoprolol Tartrate (Lopressor) 6.25 mg PO Q12 [facility] Last Admin: 04/27/17 21:34 Dose: Not Given Metronidazole (Flagyl) 500 mg PO Q12@0600,1800 [facility] PRN Reason: Protocol Last Admin: 04/27/17 17:46 Dose: 500 mg - Labs Labs: 04/24/17 04:20 04/24/17 04:20 - Constitutional Appears: Well - Head Exam Head Exam: ATRAUMATIC, NORMAL INSPECTION, NORMOCEPHALIC - Eye Exam Eye Exam: EOMI, Normal appearance, PERRL Pupil Exam: NORMAL ACCOMODATION, PERRL - ENT Exam ENT Exam: Mucous Membranes Moist, Normal Exam. absent: Mucous Membranes Dry, Normal External Ear Exam, Normal Oropharynx, TM's Normal Bilaterally - Neck Exam Neck Exam: Full ROM, Normal Inspection. absent: Lymphadenopathy, Meningismus, Tenderness, Thyromegaly - Respiratory Exam Respiratory Exam: Clear to Ausculation Bilateral, NORMAL BREATHING PATTERN. absent: Accessory Muscle Use, Chest Wall Tenderness, Decreased Breath Sounds, Prolonged Expiratory Phase, Rales, Rhonchi, Wheezes, Respiratory Distress, Stridor - Cardiovascular Exam Cardiovascular Exam: REGULAR RHYTHM, +S1, +S2, Murmur. absent: Bradycardia, Tachycardia, Clicks, Diastolic murmur, Gallop, Irregular Rhythm, JVD, RRR, Rubs , +S4 - GI/Abdominal Exam GI & Abdominal Exam: Soft, Normal Bowel Sounds. absent: Bruit, Distended, Firm , Guarding, Rigid, Tenderness, Diminished Bowel Sounds, Hernia, Hyperactive Bowel Sounds, Hypoactive Bowel Sounds, Organomegaly, Pulsatile Mass, Rebound, Mass - Rectal Exam Rectal Exam: Deferred. absent: Black Stool, Bloody Stool, Hemorrhoids, Fecal Impaction, NORMAL INSPECTION - Extremities Exam Extremities Exam: Full ROM, Normal Capillary Refill, Normal Inspection. absent : Calf Tenderness, Joint Swelling, Pedal Edema, Tenderness - Back Exam Back Exam: NORMAL INSPECTION. absent: CVA tenderness (L), CVA tenderness (R), Full ROM, muscle spasm, paraspinal tenderness, rash noted, tenderness, vertebral tenderness - Neurological Exam Neurological Exam: Alert, Awake, CN II-XII Intact, Normal Gait, Oriented x3. absent: Abnormal Gait, Altered, Motor Sensory Deficit, Reflexes Normal - Psychiatric Exam Psychiatric exam: Normal Affect, Normal Mood. absent: Agitated, Anxious, Depressed, Flat Affect, Homicidal Ideation, Manic, Suicidal Ideation - Skin Skin Exam: Dry, Intact, Normal Color, Warm. absent: Abrasion, Cyanosis, Diaphoretic, Erythema, Mottled, Pallor, Pallor, Petechiae, Rash, Urticaria, Vesicles Assessment and Plan (1) Bigeminy Status: Acute (2) Colitis Status: Acute (3) Abdominal pain Status: Acute (4) Chest pain Status: Acute (5) Bradycardia Status: Acute - Assessment and Plan (Free Text) Plan: EP CALLED AND RECOMMENDED AN EXERCISE NUCLEAR ST. I WILL D/C BB'S FOR BEST ASSESSMENT OF HR RESPONSE. RECHECK LYTES CHECK THYROID FXN MONITOR ON TELE MAY NEED PPM. 45 MIN TOTAL CARE TIME.
[2017-04-28 05:37] LABS: BASO % 0.7 % (0.0-2.0); EOS # 0.2 K/uL (0.0-0.7); EOS % 3.5 % (0.0-4.0); HEMATOCRIT 41.6 % (35.0-51.0); LYMPH # 1.3 K/uL (1.0-4.3); LYMPH % 25.5 % (20.0-40.0); MEAN CORPUSCULAR HEMOGLOBIN 31.1 pg (27.0-31.0); MEAN CORPUSCULAR HGB CONC 34.2 g/dL (33.0-37.0); MEAN PLATELET VOLUME 9.7 fl (7.2-11.7); MONO # 0.5 K/uL (0.0-0.8); MONO % 9.1 % (0.0-10.0); NEUT % 61.2 % (50.0-75.0); NRBC % 0.1 % (0.0-0.0); RED CELL DISTRIBUTION WIDTH 13.6 % (11.5-14.5)
[2017-04-28 06:07] LABS: ALKALINE PHOSPHATASE 61 U/L (38-126); ALT/SGPT 69 U/L (21-72); AST/SGOT 64 U/L (17-59); BILIRUBIN,TOTAL 0.5 mg/dl (0.2-1.3); BLOOD UREA NITROGEN 17 mg/dl (9-20); CALCIUM 8.7 mg/dL (8.4-10.2); CARBON DIOXIDE 25 mmol/L (22-30); CHLORIDE 106 mmol/L (98-107); GFR AFRICAN-AMERICAN > 60; GLUCOSE,RANDOM 96 mg/dL (75-110); POTASSIUM 4.1 MMOL/L (3.6-5.0); SODIUM 141 mmol/l (132-148); TOTAL PROTEIN 7.3 G/DL (6.3-8.2)
[2017-04-28 06:10] LABS: ALB/GLOB RATIO 1.1 (1.0-2.1)
[2017-04-28 08:04] LABS: THYROID STIMULATING HORMONE 2.4 mIU/ML (0.46-4.68)
[2017-04-28] MEDS: Lactobacillus Acidophilus 500 MU Cap PO SCH ×2 (08:43→17:27)
[2017-04-28] MEDS: Enoxaparin 40 mg Syringe SC SCH (08:44)
--- NOTE | 2017-04-28 08:57 | CP.PCM.PN ---
Subjective - Date & Time of Evaluation Date of Evaluation: 04/28/17 Time of Evaluation: 08:56 - Subjective Subjective: 71 YO male admitted for colitis (abx D6) and bigeminy on sweat band sewer S: no acute overnight events. Pt feels well this AM, he states that his abdominal pain has resolved. Denies chest pain, dizziness, dyspnea, palpitations , abdominal pain, n/v/c/d. Pt states that he has a heart exam later today that he is waiting for. Objective - Vital Signs/Intake and Output Vital Signs (last 24 hours): Temp Pulse Resp BP Pulse Ox 97.6 F 52 L 18 129/70 97 04/28/17 08:05 04/28/17 08:05 04/28/17 08:05 04/28/17 08:05 04/28/17 08:05 - Medications Medications: Current Medications Acetaminophen (Tylenol 325mg Tab) 650 mg PO Q6 PRN PRN Reason: Pain, Mild (1-3) Aspirin (Aspirin Chewable) 81 mg PO DAILY [facility] Last Admin: 04/28/17 08:43 Dose: Not Given Ciprofloxacin (Cipro) 500 mg PO Q12 [facility] PRN Reason: Protocol Last Admin: 04/28/17 08:43 Dose: Not Given Enoxaparin Sodium (Lovenox) 40 mg SC DAILY [facility] PRN Reason: Protocol Last Admin: 04/28/17 08:44 Dose: 40 mg Ketorolac Tromethamine (Toradol) 15 mg IVP Q6 PRN PRN Reason: Pain, moderate (4-7) Ketorolac Tromethamine (Toradol) 30 mg IVP Q6 PRN PRN Reason: Pain, severe (8-10) Lactobacillus Acidophilus (Bacid Acidophilus) 1 cap PO BID [facility] Last Admin: 04/28/17 08:43 Dose: Not Given Metronidazole (Flagyl) 500 mg PO Q12@0600,1800 [facility] PRN Reason: Protocol Last Admin: 04/28/17 05:53 Dose: Not Given - Labs Labs: 04/28/17 04:15 04/28/17 04:15 - Constitutional Appears: Well, No Acute Distress - Head Exam Head Exam: ATRAUMATIC, NORMAL INSPECTION, NORMOCEPHALIC - Eye Exam Eye Exam: EOMI, Normal appearance - ENT Exam ENT Exam: Mucous Membranes Moist - Neck Exam Neck Exam: Full ROM - Respiratory Exam Respiratory Exam: Clear to Ausculation Bilateral, NORMAL BREATHING PATTERN. absent: Chest Wall Tenderness, Wheezes - Cardiovascular Exam Cardiovascular Exam: Bradycardia, +S1, +S2 Additional comments: bradycardia with irregular pulse. - GI/Abdominal Exam GI & Abdominal Exam: Soft, Tenderness (mild tenderness to palpation of the periumbilical area), Normal Bowel Sounds - Extremities Exam Extremities Exam: Full ROM, Normal Inspection. absent: Pedal Edema, Tenderness - Back Exam Back Exam: NORMAL INSPECTION. absent: CVA tenderness (L), CVA tenderness (R) - Neurological Exam Neurological Exam: Alert, Awake, Oriented x3 - Psychiatric Exam Psychiatric exam: Normal Affect, Normal Mood - Skin Skin Exam: Dry, Intact, Normal Color, Warm Assessment and Plan - Assessment and Plan (Free Text) Assessment: 71 y/o male with PMH of gastritis and H. pylori treatment (2014) is admitted for transverse colitis and bigeminy on sweat band sewer. Abx D6/7 1. Bigeminy and bradycardia on sweat band sewer -pt has bradycardia with HR 50-61, remains asymptomatic -echo 02/22/17, systolic function is moderately impaired, EF 35-40% with global hypokinesis of the left ventricle - Echo 02/25/17, EF 65-70% and mild mitral and tricuspid regurg -trops x 3 neg -continue asa -Cariology recs appreciated, d/c metoprolol, repeat Ca/Phos/MG, and thyroid function. Ca and Mg wnl, Phos pending. -Dr. Leon for cardiac electrophysiology consulted, pt to get nuclear myocardial studies today. -will followup 2. Abdominal pain, resolved -likely secondary to transverse colitis -CT appreciated, findings consistent with acute colitis involving the transverse colon. -abx switched to PO, cipro and metro D6/7 -tylenol and toradol for pain 3. Euthyroid Hypothyroxinema -normal TSH and T4 with Low total Triiodothyronine, 0.9 -asymptomatic, clinically not significant -will follow up 4. Elevated AST -36-->64 today -will repeat labs -follow up 3. Diet -Heart healthy 4. DVT prop -lovonox 40mg
--- NOTE | 2017-04-29 05:37 | CON ---
DATE: 04/28/2017 INPATIENT ELECTROPHYSIOLOGY CONSULTATION REFERRING PHYSICIAN: Raphael Nam DO REASON FOR EVALUATION: 1. Premature ventricular contractions. 2. Sick sinus syndrome. 3. Chest pain. HISTORY OF PRESENT ILLNESS: Mr. Kemar Jarquin is a 71-year-old [place] male with past medical history, which is not very significant, presents initially to [facility] on 04/23/2017 with burning, cramping abdominal pain believed to be secondary to colitis. On telemetry, the patient was found to have significant ventricular ectopy with bigeminal pattern. General Cardiology was consulted. Dr. Nam has been seeing and evaluating him. He underwent 2D echocardiogram and to this point is reportedly normal with intrinsic systolic contractions. The patient did have significant ventricular ectopy, was placed on low-dose beta-keke in the form of metoprolol 12.5 mg twice a day. Heart rates have been borderline bradycardic. There was some degree of confusion with whether or not the patient had been or had not been receiving medications. Today, the patient has not received medications. The patient's hearts are in the 70s with occasional bigeminal pattern. On taking a history, the patient does admit to intermittent chest discomfort. Denies any palpitations, dizziness, lightheadedness, paroxysmal nocturnal dyspnea or orthopnea. He has never had an episode of syncope either. REVIEW OF SYSTEMS: He denies any anorexia, chills, daytime sleepiness, excessive sweating, remains active, no visual disturbances, no change in vision or decreases of night vision, no discharges, exophthalmos, floaters, itchiness, photophobia. No hearing disturbances, no disequilibrium or dizziness. No epistaxis, nasal congestion, nasal discharge. No bleeding gums, dysphagia, halitosis, hoarseness, swelling, lesions, mouth pain, tongue swelling, facial pain, neck pain, neck mass. No acrocyanosis, dyspnea, pedal edema, syncope. The patient does have the aforementioned intermittent chest twinges that he describes as chest discomfort. No cough, wheezes, sputum production, nausea, vomiting, diarrhea, constipation, dyspepsia. The patient came in with the aforementioned crampy abdominal pain, which has since resolved. No urinary complaints. No musculoskeletal discomfort. No skin related changes. No neurologic issues, confusing, convulsion, disequilibrium, dizziness, numbness, focal weakness, lack of coordination, no psychosocial stressors. PHYSICAL EXAMINATION: VITAL SIGNS: Temperature 97.6, pulse rate of 52, blood pressure of 129/70, respiratory rate of 18. GENERAL: He is a male with short stature, able to speak in complete sentences, alert and oriented x3. HEENT: Examination of his head is normocephalic and atraumatic. There is no dilan facial asymmetry. NECK: Supple. No jugular venous distention. No thyromegaly. CHEST: Clear to auscultation bilaterally. CARDIOVASCULAR: Bradycardic and irregularly irregular rhythm. S1, S2. No S3 or S4. Close coupled PVCs are noted on auscultation. ABDOMEN: Soft, nontender, nondistended. At this point, positive bowel sounds. EXTREMITIES: No cyanosis, clubbing or edema. LABORATORY DATA: On related lab work, the patient has a white count of 6.7, H and H of 15.2 and 39.1, and platelets of 189. Potassium is 3.9, magnesium is 2.0. ALT, AST of 64 and 69 respectively. Troponins are negative x2. Albumin is 1.1. Free T4 is 1.07. Total T3 is 0.90, which is low. TSH is within normal limits at 2.4. EKG from 04/23/2014 shows sinus rhythm at 73 beats per minute, normal P wave morphology, VT interval is within normal limit, relatively low amplitude in the chest leads, normal axis across the precordium, there are frequent VPCs which appeared to be right bundle-branch block in etiology. There is a superior axis in the inferior lead and right bundloid-type appearance in the inferior precordial leads. ASSESSMENT AND PLAN: 1. 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 At this point, the patient does not appear to be symptomatic. This has probably been a long-standing chronic process. There is no evidence of patient having evidence of malignant episodes from an arrhythmic standpoint. The patient's echocardiogram initially read to be abnormal, now believed to be within normal limits in terms of left ventricular function. If there is significant left ventricular dysfunction by nuclear stress test, then the patient is truly believed to have a cardiomyopathy. Perhaps beta-keke therapy in that setting would be required or may consider a permanent pacemaker to provide chronotropic support. At this point, the patient is asymptomatic. It is unclear whether a premature ventricular contraction ablation would be required in terms of patient management. This has been explained via pigment presser to the patient in detail. If the patient is asymptomatic on low-dose beta-keke, we may consider discharging him on a low-dose beta keek to follow up in the clinic here at [facility]. 2. Sick sinus syndrome. At this point, the patient is asymptomatic and noted to have periods of bradycardia, but with limited symptoms with administration of low-dose beta-keke. Again, we would see if the patient is symptomatic with low-dose beta-keke prior to making a decision as far as whether beta blockers assisted are suitable or whether chronotropic support is required. 3. Chest pain, appears to be atypical. We would send for an exercise nuclear stress test, which at this point had been attempted today, needs to be completed tomorrow. I personally saw and evaluated the patient. I also walked with him in the hallway. The patient is able to get his resting heart rate up into the 80s. The patient does have consistent premature ventricular contractions with ambulation, but is asymptomatic. Thank you for allowing me to participate in the care of your patient. Please do not hesitate to call for any questions with regards to his care. Richard Engle MD
--- NOTE | 2017-04-29 09:08 | CP.PCM.PN ---
Subjective - Date & Time of Evaluation Date of Evaluation: 04/29/17 Time of Evaluation: 08:57 - Subjective Subjective: 71 YO male admitted for colitis (abx D7/7) and bigeminy on cardiac monitor technician Stress test part II nate yesterday, Part I done this AM. Pt made NPO at midnight was restarted on diet. Pt doing well this morning, he states that abdominal pain resolved. Denies chest pain, dyspnea, palpitations, abdominal pain, n/v/d/c. Objective - Vital Signs/Intake and Output Vital Signs (last 24 hours): Temp Pulse Resp BP Pulse Ox 97.6 F 52 L 18 106/65 100 04/29/17 05:08 04/29/17 05:08 04/29/17 05:08 04/29/17 05:08 04/29/17 05:08 - Medications Medications: Current Medications Acetaminophen (Tylenol 325mg Tab) 650 mg PO Q6 PRN PRN Reason: Pain, Mild (1-3) Aspirin (Aspirin Chewable) 81 mg PO DAILY [facility] Last Admin: 04/28/17 08:43 Dose: Not Given Ciprofloxacin (Cipro) 500 mg PO Q12 [facility] PRN Reason: Protocol Last Admin: 04/28/17 21:08 Dose: 500 mg Enoxaparin Sodium (Lovenox) 40 mg SC DAILY [facility] PRN Reason: Protocol Last Admin: 04/28/17 08:44 Dose: 40 mg Ketorolac Tromethamine (Toradol) 15 mg IVP Q6 PRN PRN Reason: Pain, moderate (4-7) Lactobacillus Acidophilus (Bacid Acidophilus) 1 cap PO BID [facility] Last Admin: 04/28/17 17:27 Dose: 1 cap Metronidazole (Flagyl) 500 mg PO Q12@0600,1800 [facility] PRN Reason: Protocol Last Admin: 04/29/17 05:56 Dose: 500 mg - Labs Labs: 04/28/17 04:15 04/28/17 04:15 - Constitutional Appears: No Acute Distress - Head Exam Head Exam: ATRAUMATIC, NORMAL INSPECTION - Eye Exam Eye Exam: EOMI, Normal appearance - ENT Exam ENT Exam: Mucous Membranes Moist, Normal Exam - Neck Exam Neck Exam: Full ROM - Respiratory Exam Respiratory Exam: Clear to Ausculation Bilateral, NORMAL BREATHING PATTERN - Cardiovascular Exam Cardiovascular Exam: REGULAR RHYTHM, +S1, +S2 - GI/Abdominal Exam GI & Abdominal Exam: Soft, Normal Bowel Sounds. absent: Tenderness - Extremities Exam Extremities Exam: Full ROM, Normal Inspection. absent: Pedal Edema, Tenderness - Back Exam Back Exam: NORMAL INSPECTION. absent: CVA tenderness (L), CVA tenderness (R) - Neurological Exam Neurological Exam: Alert, Awake, Normal Gait - Psychiatric Exam Psychiatric exam: Normal Affect, Normal Mood - Skin Skin Exam: Dry, Intact, Normal Color, Warm Assessment and Plan - Assessment and Plan (Free Text) Assessment: 71 y/o male with PMH of gastritis and H. pylori treatment (2014) is admitted for transverse colitis and bigeminy on cardiac monitor technician. Abx D7/7 1. PVCs, Bigeminy on cardiac monitor technician -pt has bradycardia with HR 50-61, remains asymptomatic -echo 02/22/17, systolic function is moderately impaired, EF 35-40% with global hypokinesis of the left ventricle - Echo 02/25/17, EF 65-70% and mild mitral and tricuspid regurg -trops x 3 neg -continue asa -Cardiology recs appreciated, d/c metoprolol -Dr. Leon cardiac electrophysiology consulted, cardiac nuclear myocardial studies done today. -will follow up for further recs from Dr. Leon 2. Abdominal pain, resolved -likely secondary to transverse colitis -CT appreciated, findings consistent with acute colitis involving the transverse colon. -abx switched to PO, cipro and metro D7/7 -tylenol for pain 3. Euthyroid Hypothyroxinema -normal TSH and T4 with Low total Triiodothyronine, 0.9 -asymptomatic, clinically not significant -will follow up 4. Elevated AST -36-->64 today -will repeat labs -follow up 5. Diet -Heart healthy 6. DVT prop -lovonox 40mg
[2017-04-29] MEDS: Lactobacillus Acidophilus 500 MU Cap PO SCH ×2 (10:08→16:56)
[2017-04-29] MEDS: Enoxaparin 40 mg Syringe SC SCH (10:08)
--- NOTE | 2017-04-29 19:11 | CP.PCM.PN ---
Subjective - Date & Time of Evaluation Date of Evaluation: 04/28/17 Time of Evaluation: 19:00 - Subjective Subjective: PT AWAITING SECOND PART OF STRESS TOMORROW. EXERCISE REVEALED BIGEM DURING EXERCISE. Objective - Vital Signs/Intake and Output Vital Signs (last 24 hours): Temp Pulse Resp BP Pulse Ox 98.1 F 50 L 20 113/69 99 04/29/17 15:44 04/29/17 15:44 04/29/17 15:44 04/29/17 15:44 04/29/17 15:44 - Medications Medications: Current Medications Acetaminophen (Tylenol 325mg Tab) 650 mg PO Q6 PRN PRN Reason: Pain, Mild (1-3) Aspirin (Aspirin Chewable) 81 mg PO DAILY [facility] Last Admin: 04/29/17 10:08 Dose: 81 mg Ciprofloxacin (Cipro) 500 mg PO Q12 [facility] PRN Reason: Protocol Last Admin: 04/29/17 10:08 Dose: 500 mg Enoxaparin Sodium (Lovenox) 40 mg SC DAILY [facility] PRN Reason: Protocol Last Admin: 04/29/17 10:08 Dose: 40 mg Lactobacillus Acidophilus (Bacid Acidophilus) 1 cap PO BID [facility] Last Admin: 04/29/17 16:56 Dose: 1 cap Metronidazole (Flagyl) 500 mg PO Q12@0600,1800 [facility] PRN Reason: Protocol Last Admin: 04/29/17 17:00 Dose: 500 mg - Labs Labs: 04/28/17 04:15 04/28/17 04:15 - Constitutional Appears: Well - Head Exam Head Exam: ATRAUMATIC, NORMAL INSPECTION, NORMOCEPHALIC - Eye Exam Eye Exam: EOMI, Normal appearance, PERRL. absent: Conjunctival injection, Nystagmus, Periorbital swelling, Periorbital tenderness, Scleral icterus Pupil Exam: NORMAL ACCOMODATION, PERRL - ENT Exam ENT Exam: Mucous Membranes Moist, Normal Exam. absent: Mucous Membranes Dry, Normal External Ear Exam, Normal Oropharynx, TM's Normal Bilaterally - Neck Exam Neck Exam: Full ROM, Normal Inspection. absent: Lymphadenopathy, Meningismus, Tenderness, Thyromegaly - Respiratory Exam Respiratory Exam: Clear to Ausculation Bilateral, NORMAL BREATHING PATTERN. absent: Accessory Muscle Use, Chest Wall Tenderness, Decreased Breath Sounds, Prolonged Expiratory Phase, Rales, Rhonchi, Wheezes, Respiratory Distress, Stridor - Cardiovascular Exam Cardiovascular Exam: Irregular Rhythm, +S1, +S2, Murmur. absent: Bradycardia, Tachycardia, Clicks, Diastolic murmur, Gallop, REGULAR RHYTHM, JVD, RRR, Rubs, + S4 - GI/Abdominal Exam GI & Abdominal Exam: Soft, Normal Bowel Sounds - Rectal Exam Rectal Exam: Deferred - Extremities Exam Extremities Exam: Full ROM, Normal Capillary Refill, Normal Inspection. absent : Joint Swelling, Pedal Edema - Back Exam Back Exam: NORMAL INSPECTION. absent: CVA tenderness (L), CVA tenderness (R), Full ROM, muscle spasm, paraspinal tenderness, rash noted, tenderness, vertebral tenderness - Neurological Exam Neurological Exam: Alert, Awake, CN II-XII Intact, Normal Gait, Oriented x3. absent: Abnormal Gait, Altered, Motor Sensory Deficit, Reflexes Normal - Psychiatric Exam Psychiatric exam: Normal Affect, Normal Mood. absent: Agitated, Anxious, Depressed, Flat Affect, Homicidal Ideation, Manic, Suicidal Ideation - Skin Skin Exam: Dry, Intact, Normal Color, Warm. absent: Abrasion, Cyanosis, Diaphoretic, Erythema, Mottled, Pallor, Pallor, Petechiae, Rash, Urticaria, Vesicles Assessment and Plan (1) Bigeminy Status: Acute (2) Colitis Status: Acute (3) Abdominal pain Status: Acute (4) Chest pain Status: Acute - Assessment and Plan (Free Text) Plan: PT CONTINUES TO HAVE BIGEM. HAD BIGEM DURING EXERCISE WELL. IMAGES PENDING VEIN BLEW DURING ST AND NUCLEAR AGENT SEQUESTERED IN ARM. OFF BB'S GIVEN NAVEED. D/W EP, IF ISCHEMIC THEN CATH IF HAS CM THEN ABLATION OR BB WITH PM.
[2017-04-30 05:31] LABS: ALB/GLOB RATIO 1.1 (1.0-2.1); ALKALINE PHOSPHATASE 55 U/L (38-126); ALT/SGPT 66 U/L (21-72); AST/SGOT 51 U/L (17-59); BILIRUBIN,TOTAL 0.4 mg/dl (0.2-1.3); BLOOD UREA NITROGEN 17 mg/dl (9-20); CALCIUM 8.9 mg/dL (8.4-10.2); CARBON DIOXIDE 27 mmol/L (22-30); CHLORIDE 105 mmol/L (98-107); GFR AFRICAN-AMERICAN > 60; GLUCOSE,RANDOM 98 mg/dL (75-110); POTASSIUM 3.9 MMOL/L (3.6-5.0); SODIUM 140 mmol/l (132-148)
[2017-04-30 05:39] LABS: BASO % 0.5 % (0.0-2.0); EOS # 0.1 K/uL (0.0-0.7); EOS % 1.6 % (0.0-4.0); HEMATOCRIT 38.5 % (35.0-51.0); LYMPH # 1.4 K/uL (1.0-4.3); LYMPH % 23.8 % (20.0-40.0); MEAN CELL VOLUME 89.7 fl (80.0-94.0); MEAN CORPUSCULAR HEMOGLOBIN 31.7 pg (27.0-31.0); MEAN CORPUSCULAR HGB CONC 35.3 g/dL (33.0-37.0); MEAN PLATELET VOLUME 9.7 fl (7.2-11.7); MONO # 0.5 K/uL (0.0-0.8); MONO % 8.6 % (0.0-10.0); NEUT # 3.9 K/uL (1.8-7.0); NEUT % 65.5 % (50.0-75.0); NRBC % 0.1 % (0.0-0.0); RED CELL DISTRIBUTION WIDTH 13.7 % (11.5-14.5); WHITE BLOOD COUNT 5.9 K/uL (4.8-10.8)
[2017-04-30 08:06] VITALS: O2SAT 94
--- NOTE | 2017-04-30 08:29 | CARD ---
APPROVED REPORT Protocol: INEZ Test Type: Stress Nuclear Medications: ACETAMINPHEN 650MG, ASPIRIN 81MG, ENOXAPARIN SODIUM 40MG/ Medical History: GASTRITIS, H. PYLORI INFECTION Target HR: 148 bpm Resting ECG: premature ventricular contractions Resting Heart Rate: 71 bpm Resting Blood Pressure: 120/80mmHg submaximum (85%): 126 bpm TEST SUMMARY [id number]. [id number]. [id number]. PRETESTWARM-[id number]. EXERCISESTAGE [id number]/70.44. EXERCISESTAGE [id number]. EXERCISESTAGE 303:[id number]/70.58. EXERCISESTAGE 400:[id number]/70.53. [id number]. POST EXERCISE Reason for Termination: Fatigue Target HR: No Max HR: 121 bpm 81% of Maximum Predicted HR: 148 bpm Exercise duration: 09:40 min:sec, 4 Stage Exercise capacity: 11.2METs Max Blood Pressure: 180/70mmHg Blood Pressure response to exercise: normal resting BP - appropriate response Heart Rate response to exercise: Blunted HR response to Excercise Chest Pain: No, none Angina index: 0 Arrhythmia: Yes, Ectopy continued ST Change: No, none Deviation: 0 mm Clinical Indications Under Appropriate Use Criteria This 71-year-old man underwent this study to rule out evidence of coronary artery disease. He had complained of atypical chest pain unconnected to any physical activity. He denies any history of diabetes or hypertension and had never suffered a myocardial infarction. His resting electric cardiogram showed sinus rhythm with frequent premature ventricular beats and occasional ventricular bigeminy. His resting blood pressure was 142/80 mmHg. His cardiac auscultation was unremarkable. Stress EKG Interpretation The patient underwent a resting myocardial scan after 10 mCi of sestamibi was given intravenously followed 45 minutes later by myocardial scanning. An hour and a half from the initial administration of sestamibi, the patient underwent an exercise test on Inez protocol finishing 41 seconds of stage IV effort. The test was terminated because of fatigue and shortness of breath. There was neither chest pain not ischemic electro-cardiographic abnormality. The premature ventricular beats persisted throughout the exercise.. The peak heart rate achieved was 121 bpm which corresponded to 70% of his predicted max. The blood pressure raffi appropriately reaching 180/70 mmHg. The peak workload achieved was 11.2 METs. 30 seconds prior to the termination of exercise, the patient was given 30 mCi of sestamibi intravenously. Upon termination of exercise, his heart rate and blood pressure recovery were normal. The patient left the stress lab symptom free and hemodynamically stable. 45 minutes later the patient underwent a myocardial scan. The 2 sets of images were processed. Gated and planar images were acquired. Tomographic images were examined. EXAM: Myocardial Perfusion REST/STRESS Image QualityGood Imaging Protocol The imaging protocol used to acquire images was Rest Tc-99m/stress Tc-99m 2 days Rest Spect myocardial perfusion imaging was performed in supine position 75 minutes following the injection of 27 mCi of Tc-99 Myoview. Time of rest injection: 11:40 Time of rest imagin:55 At peak stress, the patient was injected intravenously with 30mCi of Tc-99 tetrofosmin after an infusion time of minutes and seconds. Time of stress injection: 8:30 Time of stress imagin:00 Gated Stress Spect was performed 150 minutes after intravenous Tc-99 Myoview injection. The images were gated to evaluate regional wall motion and calculate ventricular ejection fraction. LV Perfusion Both the resting and post exercise images showed normal regional sestamibi uptake. Wall Motion Gating was poor because of a persistent ventricular ectopy. But, the images demonstrated normal regional wall motion and wall thickening. His resting left ventricular ejection fraction was 65%. CONCLUSION 1. The patient had an excellent effort tolerance. His blood pressure response to exercise was appropriate. The test had a reduced sensitivity in detecting coronary artery disease since the peak heart rate achieved was only 70% of his predicted max. But, at this level of exercise, no evidence of myocardial ischemia was detected. Frequent ventricular ectopy interfered with gating images. But, the images demonstrated normal left ventricular systolic function.
[2017-04-30] MEDS: Lactobacillus Acidophilus 500 MU Cap PO SCH (10:17)
[2017-04-30] MEDS: Enoxaparin 40 mg Syringe SC SCH (10:17)
--- NOTE | 2017-04-30 11:46 | CP.PCM.DIS ---
Provider - Provider Date of Admission: 04/23/17 17:00 Attending physician: Bonny Valencia MD Time Spent in preparation of Discharge (in minutes): 20 Hospital Course - Lab Results Lab Results: Most Recent Lab Values WBC 5.9 K/uL (4.8-10.8) 04/30/17 04:10 RBC 4.30 Mil/uL (4.40-5.90) L 04/30/17 04:10 Hgb 13.6 g/dL (12.0-18.0) 04/30/17 04:10 Hct 38.5 % (35.0-51.0) 04/30/17 04:10 MCV 89.7 fl (80.0-94.0) 04/30/17 04:10 MCH 31.7 pg (27.0-31.0) H 04/30/17 04:10 MCHC 35.3 g/dL (33.0-37.0) 04/30/17 04:10 RDW 13.7 % (11.5-14.5) 04/30/17 04:10 Plt Count 209 K/uL (130-400) 04/30/17 04:10 MPV 9.7 fl (7.2-11.7) 04/30/17 04:10 Neut % (Auto) 65.5 % (50.0-75.0) 04/30/17 04:10 Lymph % (Auto) 23.8 % (20.0-40.0) 04/30/17 04:10 [place] % (Auto) 8.6 % (0.0-10.0) 04/30/17 04:10 Eos % (Auto) 1.6 % (0.0-4.0) 04/30/17 04:10 Baso % (Auto) 0.5 % (0.0-2.0) 04/30/17 04:10 Neut # 3.9 K/uL (1.8-7.0) 04/30/17 04:10 Lymph # 1.4 K/uL (1.0-4.3) 04/30/17 04:10 [place] # 0.5 K/uL (0.0-0.8) 04/30/17 04:10 Eos # 0.1 K/uL (0.0-0.7) 04/30/17 04:10 Baso # 0.0 K/uL (0.0-0.2) 04/30/17 04:10 Sodium 140 mmol/l (132-148) 04/30/17 04:10 Potassium 3.9 MMOL/L (3.6-5.0) 04/30/17 04:10 Chloride 105 mmol/L (98-107) 04/30/17 04:10 Carbon Dioxide 27 mmol/L (22-30) 04/30/17 04:10 Anion Gap 12 (10-20) 04/30/17 04:10 BUN 17 mg/dl (9-20) 04/30/17 04:10 Creatinine 0.8 mg/dL (0.8-1.5) 04/30/17 04:10 Est GFR ( Amer) > 60 04/30/17 04:10 Est GFR (Non-Af Amer) > 60 04/30/17 04:10 Random Glucose 98 mg/dL (75-110) 04/30/17 04:10 Calcium 8.9 mg/dL (8.4-10.2) 04/30/17 04:10 Phosphorus 3.8 mg/dl (2.5-4.5) 04/24/17 04:20 Magnesium 2.0 MG/DL (1.6-2.3) 04/28/17 04:15 Total Bilirubin 0.4 mg/dl (0.2-1.3) 04/30/17 04:10 AST 51 U/L (17-59) 04/30/17 04:10 ALT 66 U/L (21-72) 04/30/17 04:10 Alkaline Phosphatase 55 U/L (38-126) 04/30/17 04:10 Troponin I < 0.0120 ng/mL (0.00-0.120) 04/24/17 21:25 Total Protein 7.0 G/DL (6.3-8.2) 04/30/17 04:10 Albumin 3.7 g/dL (3.5-5.0) 04/30/17 04:10 Globulin 3.3 gm/dL (2.2-3.9) 04/30/17 04:10 Albumin/Globulin Ratio 1.1 (1.0-2.1) 04/30/17 04:10 Lipase 150 U/L (23-300) 04/23/17 11:05 Free T4 1.07 ng/dL (0.78-2.19) 04/28/17 04:15 Total T3 0.900 nmol/L (1.49-2.60) L 04/28/17 04:15 TSH 3rd Generation 2.40 mIU/ML (0.46-4.68) 04/28/17 04:15 Urine Color Yellow (YELLOW) 04/23/17 14:20 Urine Clarity Clear (Clear) 04/23/17 14:20 Urine pH 6.0 (5.0-8.0) 04/23/17 14:20 Ur Specific [place] 1.018 (1.003-1.030) 04/23/17 14:20 Urine Protein Negative mg/dL (NEGATIVE) 04/23/17 14:20 Urine Glucose (UA) Neg mg/dL (Normal) 04/23/17 14:20 Urine Ketones Negative mg/dL (NEGATIVE) 04/23/17 14:20 Urine Blood Negative (NEGATIVE) 04/23/17 14:20 Urine Nitrate Negative (NEGATIVE) 04/23/17 14:20 Urine Bilirubin Negative (NEGATIVE) 04/23/17 14:20 Urine Urobilinogen 0.2-1.0 mg/dL (0.2-1.0) 04/23/17 14:20 Ur Leukocyte Esterase Neg Ald[place]/uL (Negative) 04/23/17 14:20 Urine RBC (Auto) 3 /hpf (0-3) 04/23/17 14:20 Urine Microscopic WBC < 1 /hpf (0-5) 04/23/17 14:20 - Hospital Course Hospital Course: 71 YO Male with PMH of gastritis was admitted to [facility] for colitis and bigeminy on security monitor. Pt recieved 7days of abx for colitis, pain resolved. Pt seen by cardiology and EP, pt remains asymptomatic. Nuclear stress test appreciated, no ischemia noted, and normal left ventricle function. Team spoke to Dr. Jon EP, pt is asymptomatic at this time will need further work if pt becomes symptomatic. At that time, consider medications or pacemaker if needed. Pt has a follow up apt at [facility] 05/07/17 at 1:00 PM. Discharge Exam - Head Exam Head Exam: ATRAUMATIC, NORMAL INSPECTION, NORMOCEPHALIC - Eye Exam Eye Exam: EOMI, Normal appearance - ENT Exam ENT Exam: Mucous Membranes Moist - Respiratory Exam Respiratory Exam: Clear to PA & Lateral, NORMAL BREATHING PATTERN - Cardiovascular Exam Cardiovascular Exam: Bradycardia, REGULAR RHYTHM, +S1, +S2 - GI/Abdominal Exam GI & Abdominal Exam: Normal Bowel Sounds - Extremities Exam Extremities exam: full ROM, normal inspection - Back Exam Back exam: NORMAL INSPECTION. absent: CVA tenderness (L), CVA tenderness (R) - Neurological Exam Neurological exam: Alert, Normal Gait, Oriented x3 - Psychiatric Exam Psychiatric exam: Normal Affect, Normal Mood - Skin Skin Exam: Dry, Intact, Normal Color, Warm Discharge Plan - Follow Up Plan Condition: FAIR Disposition: HOME/ ROUTINE Patient education suggested?: Yes Instructions: Infectious Colitis (GEN), Bradycardia (DC) Additional Instructions: Please come back to ED for chest pain, palpitations, dizziness Follow up appointment at [facility] 05/07/2017 at 1PM
[2017-04-30 12:13] VITALS: BP 115/62; PULSE 59; RESP 17; TEMP 98.5
== END 2017-04-30 13:00 | disposition home or self-care (01) | DRG 392 ==
LOC: H.ER 10:37 → H.ERHOLD 17:00 → H.TEL 20:29
PROVIDERS: ADMIT Family Medicine Geriatric Medicine; ATTEND Family Medicine Geriatric Medicine
PROC: 3E0234Z Introduction of Serum, Toxoid and Vaccine into Muscle, Percutaneous Approach (ICD-10-PCS; principal; 2017-04-24)
DX: K52.9 Noninfective gastroenteritis and colitis, unspecified (principal); I49.5 Sick sinus syndrome; K21.9 Gastro-esophageal reflux disease without esophagitis; K29.70 Gastritis, unspecified, without bleeding; Z23 Encounter for immunization; R00.8 Other abnormalities of heart beat; R07.89 Other chest pain; I49.3 Ventricular premature depolarization; R74.8 Abnormal levels of other serum enzymes

== ENCOUNTER 2018-03-29 09:05 | Emergency (ER) | payer OTHER, SELFPAY ==
[2018-03-29 09:10] VITALS: BMI 23.8
[2018-03-29 09:11] VITALS: O2SAT 98
--- NOTE | 2018-03-29 09:23 | ED PDOC ---
HPI: Abdomen Time Seen by Provider: 03/29/18 09:12 Chief Complaint (Nursing): Abdominal Pain History Per: Patient Onset/Duration Of Symptoms: Other (3 weeks) Current Symptoms Are (Timing): Intermittent Episodes Severity: Moderate Location Of Pain/Discomfort: RLQ, Epigastric Quality Of Discomfort: Unable To Describe Associated Symptoms: denies: Fever, Nausea, Vomiting, Diarrhea Exacerbating Factors: None Alleviating Factors: None Additional Complaint(s): Epigastric and RLQ abd pain x 3 weeks. Intermittent. Denies NVD. No bloody stool. Denies fever or urinary sxs. Past Medical History Vital Signs: Last Vital Signs Temp 97.8 F 03/29/18 09:09 Pulse 65 03/29/18 09:09 Resp 16 03/29/18 09:09 BP 160/83 H 03/29/18 09:09 Pulse Ox 98 03/29/18 09:22 - Medical History PMH: Gastritis Denies: Asthma, Atrial Fibrillation, Bronchitis, CHF, COPD, Emphysema, HTN, Hypercholesterolemia, Peripheral Edema, Pneumonia, Pulmonary Embolism Other PMH: Colitis - Family History Family History: States: Unknown Family Hx - Home Medications Home Medications: Ambulatory Orders Medication Instructions Recorded Multivitamin/Iron/Folic Acid 1 tab PO DAILY 04/23/17 [Centrum Complete Multivit Tab] Aspirin [Aspirin Chewable] 81 mg PO DAILY chew 04/30/17 Famotidine [Pepcid] 20 mg PO Q12 #20 tab 03/29/18 - Allergies Allergies/Adverse Reactions: Allergies Allergy/AdvReac Type Severity Reaction Status Date / Time No Known Allergies Allergy Verified 04/23/17 10:48 Review of Systems ROS Statement: Except As Marked, All Systems Reviewed And Found Negative Constitutional: Negative for: Fever Gastrointestinal: Positive for: Abdominal Pain Physical Exam - Reviewed Nursing Documentation Reviewed: Yes Vital Signs Reviewed: Yes - Physical Exam Appears: Positive for: Non-toxic, No Acute Distress Head Exam: Positive for: ATRAUMATIC, NORMAL INSPECTION, NORMOCEPHALIC Skin: Positive for: Normal Color, Warm, DRY Eye Exam: Positive for: EOMI, Normal appearance, PERRL ENT: Positive for: Normal ENT Inspection Neck: Positive for: Normal, Painless ROM Cardiovascular/Chest: Positive for: Regular Rate, Rhythm Respiratory: Positive for: CNT, Normal Breath Sounds Gastrointestinal/Abdominal: Positive for: Soft, Tenderness (Epigastric and RLQ) Back: Positive for: Normal Inspection Extremity: Positive for: Normal ROM Neurologic/Psych: Positive for: Alert, Oriented - Laboratory Results Result Diagrams: 03/29/18 09:38 03/29/18 09:38 - ECG O2 Sat by Pulse Oximetry: 98 Disposition - Clinical Impression Clinical Impression: Gastritis - Patient ED Disposition Is Patient to be Admitted: No Counseled Patient/Family Regarding: Studies Performed, Diagnosis, Need For Followup, Rx Given - Disposition Referrals: [facility] [Outside] Disposition: Routine/Home Disposition Time: 13:09 Condition: FAIR Prescriptions: Famotidine [Pepcid] 20 mg PO Q12 #20 tab Instructions: Gastritis Forms: [facility] (German) Print Language: LITHUANIAN
[2018-03-29 09:44] LABS: BASO % 0.2 % (0.0-2.0); EOS # 0.1 K/uL (0.0-0.7); EOS % 1.5 % (0.0-4.0); HEMOGLOBIN 14.5 g/dL (12.0-18.0); LYMPH # 1.6 K/uL (1.0-4.3); LYMPH % 28.5 % (20.0-40.0); MEAN CELL VOLUME 90.9 fl (80.0-94.0); MEAN CORPUSCULAR HEMOGLOBIN 31.5 pg (27.0-31.0); MEAN CORPUSCULAR HGB CONC 34.7 g/dL (33.0-37.0); MEAN PLATELET VOLUME 9.8 fl (7.2-11.7); MONO # 0.4 K/uL (0.0-0.8); MONO % 7.1 % (0.0-10.0); NEUT # 3.6 K/uL (1.8-7.0); NEUT % 62.7 % (50.0-75.0); NRBC % 0.1 % (0.0-0.0); RBC 4.61 Mil/uL (4.40-5.90); RED CELL DISTRIBUTION WIDTH 13.5 % (11.5-14.5); WHITE BLOOD COUNT 5.7 K/uL (4.8-10.8)
[2018-03-29 10:00] LABS: ALB/GLOB RATIO 1.1 (1.0-2.1); ALBUMIN 4.2 g/dL (3.5-5.0); ALT/SGPT 28 U/L (21-72); AST/SGOT 30 U/L (17-59); BLOOD UREA NITROGEN 19 mg/dl (9-20); CALCIUM 9.1 mg/dL (8.4-10.2); GFR NON-AFRICAN AMERICAN > 60
[2018-03-29] MEDS ORDERED: Iohexol 300 100 ML IJ ONE (11:11)
[2018-03-29] MEDS ORDERED: Sodium Chloride 0.9% 50 ML IV ONE (11:11)
--- NOTE | 2018-03-29 12:16 | CT ---
Date of service: 03/29/2018 PROCEDURE: CT Abdomen and Pelvis with contrast HISTORY: Abd pain COMPARISON: CT scan of the abdomen and pelvis dated 04/23/2017. TECHNIQUE: Contrast dose: 95 mL Omnipaque 300 Radiation dose: Total exam DLP = 298.6 mGy-cm. This CT exam was performed using one or more of the following dose reduction techniques: Automated exposure control, adjustment of the mA and/or kV according to patient size, and/or use of iterative reconstruction technique. FINDINGS: LOWER THORAX: Bilateral lower lobe subsegmental atelectasis. LIVER: Diffuse hepatic steatosis. No gross lesion or ductal dilatation. GALLBLADDER AND BILE DUCTS: Unremarkable. PANCREAS: Unremarkable. No gross lesion or ductal dilatation. SPLEEN: Unremarkable. ADRENALS: Unremarkable. No mass. KIDNEYS AND URETERS: Questionable inhomogeneous enhancement of the right upper pole. No hydronephrosis. No solid mass. VASCULATURE: Unremarkable. No aortic aneurysm. BOWEL: Prominent amount of retained colonic stool. Colonic diverticulosis. No obstruction. No gross mural thickening. APPENDIX: Normal appendix. PERITONEUM: Unremarkable. No free fluid. No free air. LYMPH NODES: Unremarkable. No enlarged lymph nodes. BLADDER: Unremarkable. REPRODUCTIVE: Unremarkable. BONES: No acute fracture. L1 superior endplate Schmorl node. OTHER FINDINGS: Stable left posterior-lateral flank 1.7 x 2.3 cm soft tissue nodule. IMPRESSION: Questionable inhomogeneous enhancement of the right upper pole which is likely due to motion artifact, but may be related to an acute infectious process in the appropriate clinical setting. Correlation with clinical symptoms, laboratory values and urinalysis is recommended. Normal appendix. Additional stable findings as above.
[2018-03-29 13:25] VITALS: BP 132/74; PULSE 68; RESP 18; TEMP 98.3
== END 2018-03-29 13:26 | disposition home or self-care (01) ==
LOC: H.ER 09:05
DX: K29.70 Gastritis, unspecified, without bleeding (principal); Z79.82 Long term (current) use of aspirin
CPT/HCPCS: 74177; 80053; 85025; 87040; 96374; 99283; Q9967

== ENCOUNTER 2018-09-15 12:49 | Emergency (ER) | payer SELFPAY ==
[2018-09-15 12:50] VITALS: BMI 23.8
[2018-09-15 12:55] VITALS: BP 113/56; PULSE 75; RESP 16; TEMP 97.7; O2SAT 99
--- NOTE | 2018-09-15 13:15 | ED PDOC ---
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)) History/Exam Limitations: language barrier Onset/Duration Of Symptoms: Days (>30 days (about three months)) Current Symptoms Are (Timing): Better Severity: Mild Associated Symptoms: denies: Photophobia, Blurred Vision, Nausea, Vomiting, Extremity Weakness - Risk Factors SAH Risk Factors: Neg: Worst Headache Of Life Past Medical History Reviewed: Historical Data, Nursing Documentation, Vital Signs Vital Signs: Last Vital Signs Temp 97.7 F 09/15/18 12:52 Pulse 75 09/15/18 12:52 Resp 16 09/15/18 12:52 BP 113/56 L 09/15/18 12:52 Pulse Ox 99 09/15/18 12:52 - Medical History PMH: Gastritis Denies: Asthma, Atrial Fibrillation, Bronchitis, CHF, COPD, Emphysema, HTN, Hypercholesterolemia, Peripheral Edema, Pneumonia, Pulmonary Embolism - Family History Family History: States: Unknown Family Hx - Home Medications Home Medications: Ambulatory Orders Medication Instructions Recorded Multivitamin/Iron/Folic Acid 1 tab PO DAILY 04/23/17 [Centrum Complete Multivit Tab] Aspirin [Aspirin Chewable] 81 mg PO DAILY chew 04/30/17 Famotidine [Pepcid] 20 mg PO Q12 #20 tab 03/29/18 - Allergies Allergies/Adverse Reactions: Allergies Allergy/AdvReac Type Severity Reaction Status Date / Time No Known Allergies Allergy Verified 04/23/17 10:48 Review of Systems ROS Statement: Except As Marked, All Systems Reviewed And Found Negative Gastrointestinal: Positive for: Abdominal Pain (mild abdominal pain when hungry) Neurological: Positive for: Headache Physical Exam - Reviewed Nursing Documentation Reviewed: Yes Vital Signs Reviewed: Yes - Physical Exam Appears: Positive for: Well, Non-toxic, No Acute Distress. Negative for: Uncomfortable Head Exam: Positive for: ATRAUMATIC, NORMAL INSPECTION Skin: Positive for: Normal Color, Warm, Dry. Negative for: Diaphoresis, Pallor, Rash Eye Exam: Positive for: Normal appearance, EOMI, PERRL. Negative for: Nystagmus, Periorbital swelling, Periorbital tenderness ENT: Positive for: Normal ENT Inspection Neck: Positive for: Normal, Painless ROM, Supple. Negative for: Decreased ROM Cardiovascular/Chest: Positive for: Regular Rate, Rhythm, Bradycardia, Tachycardia Respiratory: Positive for: Normal Breath Sounds. Negative for: Accessory Muscle Use, Crackles, Rales, Rhonchi, Stridor, Wheezing, Respiratory Distress Pulses-Carotid (L): 2+ Pulses-Carotid (R): 2+ Pulses-Radial (L): 2+ Pulses-Radial (R): 2+ Gastrointestinal/Abdominal: Positive for: Normal Exam, Bowel Sounds (active in all four quadrants), Soft. 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 Negative for: Facial Droop - Laboratory Results Result Diagrams: 09/15/18 13:30 09/15/18 13:30 - ECG O2 Sat by Pulse Oximetry: 99 Medical Decision Making Medical Decision Making: I: headache: P: ct head cbc/cmp UA Urine results indicate presence of blood. These results were discussed wiht the patient and he verbalized an understanding to follow up with his PMD, Dr Sanabria for further evaluation n about a week or two. CT RESULTS COMPARISON: None available. TECHNIQUE: Axial computed tomography images were obtained through the head/brain without intravenous contrast. Radiation dose: Total exam DLP = 863.35 mGy-cm. This CT exam was performed using one or more of the following dose reduction techniques: Automated exposure control, adjustment of the mA and/or kV according to patient size, and/or use of iterative reconstruction technique. FINDINGS: HEMORRHAGE: No intracranial hemorrhage. BRAIN: No mass effect or edema. Mild cerebral atrophy. Commensurate with patient's age. No significant appearing microvascular ischemic changes appreciated on this exam. VENTRICLES: Unremarkable. No hydrocephalus. CALVARIUM: Unremarkable. PARANASAL SINUSES: Unremarkable as visualized. No significant inflammatory changes. MASTOID AIR CELLS: Unremarkable as visualized. No inflammatory changes. OTHER FINDINGS: Vertebrobasilar and supraclinoid internal carotid artery atherosclerotic like vascular calcifications. Incidentally noted are bilateral basal ganglion calc ifications-these are not felt to be clinically significant. IMPRESSION: Normal CT for patient's age. No hemorrhage or mass effect. The patient is stable for discharge and is anxious to depart the ED The patient will follo up with his PMD as discussed for follow up UA Disposition - Clinical Impression Clinical Impression: Headache, Hematuria - Patient ED Disposition Is Patient to be Admitted: No Counseled Patient/Family Regarding: Studies Performed, Diagnosis, Need For Followup - Disposition Referrals: Brian Marion MD [Family Provider] - Disposition: Routine/Home Disposition Time: 16:50 Condition: STABLE Instructions: Blood in the Urine (Hematuria) in Adults, Blood in the Urine (Hematuria), Adult (DC) Forms: [facility] (Vietnamese), [employer] (Estonian) Print Language: IRAQI - POA Present On Arrival: None
[2018-09-15 13:44] LABS: BASO % 0.4 % (0.0-2.0); EOS # 0.1 K/uL (0.0-0.7); EOS % 1.3 % (0.0-4.0); HEMOGLOBIN 13.8 g/dL (12.0-18.0); LYMPH # 1.5 K/uL (1.0-4.3); MEAN CORPUSCULAR HEMOGLOBIN 30.4 pg (27.0-31.0); MEAN CORPUSCULAR HGB CONC 33.4 g/dL (33.0-37.0); MEAN PLATELET VOLUME 10.1 fl (7.2-11.7); MONO # 0.4 K/uL (0.0-0.8); MONO % 8.5 % (0.0-10.0); NEUT # 3.2 K/uL (1.8-7.0); NEUT % 61.8 % (50.0-75.0); NRBC % 0.1 % (0.0-0.0); RBC 4.54 Mil/uL (4.40-5.90); RED CELL DISTRIBUTION WIDTH 13.9 % (11.5-14.5); WHITE BLOOD COUNT 5.2 K/uL (4.8-10.8)
[2018-09-15 13:53] LABS: ALB/GLOB RATIO 1.3 (1.0-2.1); ALBUMIN 4.2 g/dL (3.5-5.0); ALT/SGPT 32 U/L (21-72); AST/SGOT 30 U/L (17-59); BLOOD UREA NITROGEN 20 mg/dl (9-20); CALCIUM 9.5 mg/dL (8.4-10.2); GFR NON-AFRICAN AMERICAN > 60; LIPASE 135 U/L (23-300); URINE BILIRUBIN NEGATIVE (NEGATIVE); URINE BLOOD NEGATIVE (NEGATIVE); URINE CLARITY SLIGHTY-CLOUDY (Clear); URINE COLOR YELLOW (YELLOW); URINE GLUCOSE (UA) NEG (NEGATIVE); URINE HYALINE CAST 0-2 /hpf (0-2); URINE LEUKOCYTE ESTERASE NEG Leu/uL (Negative); URINE PROTEIN 30 mg/dL (NEGATIVE); URINE UROBILINOGEN 0.2-1.0 mg/dL (0.2-1.0)
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
== END 2018-09-15 17:09 | disposition home or self-care (01) ==
LOC: H.ER 12:49
DX: R31.9 Hematuria, unspecified (principal); R51 Headache